=== PATIENT | male | born 1940 | race Caucasian/White ===

== ENCOUNTER 2018-10-04 15:15 | Inpatient (IN) | payer MEDICARE, BC ==
[~2018-10-04] VITALS: Ht 193 cm; Wt 99.8 kg
--- NOTE | 2018-10-04 15:30 | NUR ---
ADMITTED TO INTERMED[facility]ATE [facility] FROM [facility] VIA STRETCHER PER [facility]. DX: CONFUSION AND AGGRESSION. CALM AND COOPERATIVE AT THIS TIME. WILL CPOC.
--- NOTE | 2018-10-04 16:30 | NUR ---
HE HAS BEEN RESTLESS, BUT COOPERATIVE WITH STAFF AND CARE. CODE WORD=FATA HE IS ALSO A DNR. HIS 'S NAME IS ANGELIKA MELO #= [phone]. HE HAS A BRIDGE ON THE BOTTOM. HE DOES WEAR GLASSES.
[2018-10-04] MEDS ORDERED: LIPITOR40 MG PO (16:54)
[2018-10-04] MEDS ORDERED: ATROVENT 0.02%2.5 ML UPD (16:55)
[2018-10-04] MEDS ORDERED: IPRAT-ALBUT 0.5-3 ML UPD (16:58)
[2018-10-04] MEDS ORDERED: NITROQUICK0.4 MG SL (16:58)
[2018-10-04] MEDS ORDERED: LOVENOX40 MG/0.4 SC (16:59)
[2018-10-04] MEDS ORDERED: METOPROLOL TART50 MG PO (17:00)
[2018-10-04] MEDS ORDERED: NYSTATIN1 PWD TOPICAL (17:01)
[2018-10-04] MEDS ORDERED: CIPRODEX OTIC7.5 ML LEFT EAR (17:01)
[2018-10-04] MEDS ORDERED: RISPERDAL1 MG ×2 (17:02)
[2018-10-04] MEDS ORDERED: LANTUS INSULIN10 ML SC (17:03)
[2018-10-04] MEDS ORDERED: HUMALOG 30100 UNITS/ SC (17:03)
[2018-10-04] MEDS ORDERED: ASPIRIN81 MG PO (17:04)
[2018-10-04] MEDS ORDERED: PULMICORT0.5 MG/21 INH (17:04)
[2018-10-04] MEDS ORDERED: NEURONTIN 300300 MG PO (17:05)
[2018-10-04] MEDS ORDERED: DONEPEZIL HCL10 MG PO (17:05)
[2018-10-04] MEDS ORDERED: ACETAMINOPHEN500 M1 PO (17:06)
[2018-10-04] MEDS ORDERED: GLUCOPHAGE1000 MG PO (17:07)
[2018-10-04] MEDS ORDERED: AMOXICILLIN875 MG PO (17:12)
[2018-10-04] MEDS ORDERED: VIBRAMYCIN 100100 MG PO (17:14)
[2018-10-04] MEDS ORDERED: ASPIRIN325 MG PO (17:14)
[2018-10-04] MEDS ORDERED: RISPERDAL0.25 MG PO (17:16)
[2018-10-04 17:37] VITALS: BP 112/70; BMI 26.8
--- NOTE | 2018-10-04 18:00 | NUR ---
PATIENT REFUSED TO EAT SUPPER, BITING, HITTING, PUNCHING AT DOORS, CURSING STAFF AND GRABBING STAFF INAPPROPRIATELY. HALDOL 2 MG IM GIVEN IN RIGHT DELTOID. CONTINUED TO YELL AT STAFF, THREW A GLASS OF WATER, AND TRIED TO THROW URINAL AT STAFF, AND TRIED TO GET UP FROM WHEELCHAIR.
--- NOTE | 2018-10-04 18:41 | NUR ---
DR. FRANCIS HERE. NEW ORDER RECEIVED. GEODON 20 MG IM GIVEN IN RIGHT DELTOID FOR CURSING AND UNCONTROLLED BEHAVIOR, YELLING OUT LOUDLY AND CURSING. HE HAS CALMED ONLY A SLIGHT LITTLE BIT.
--- NOTE | 2018-10-05 04:23 | NUR ---
B) Patient is alert and oriented to self, very agitated at first of shift, combative with staff, restless and verbally abusive, I) Administered scheduled medications as ordered,monitored for safety, redirected as needed, R) Mediation compliant, resting quietly now and sleeping in his bed, P) Continue plan of care.
--- NOTE | 2018-10-05 06:47 | PSY ---
PATIENT NAME:DASHA MELO MEDICAL RECORD: [id number] : 36 LOCATION:[facility] ADMISSION DATE: 10/04/18 ACCOUNT: [id number] PSYCHIATRIC EVALUATION DATE OF EVALUATION: 10/04/18 IDENTIFYING DATA: The patient is 77 years old and he is admitted to the hospital on a voluntary basis. CHIEF COMPLAINT: Aggression. HISTORY OF PRESENT ILLNESS: The patient is referred to us by the [facility]. He is referred because of aggression and confusion. The patient is unable to provide anything in the way of useful history. He says that I am trying to kill him home along with the 2 nurses here even though he then admits he has never seen either one of us before, but when asked how he knows that we are trying to kill him or why he believes we are trying to kill him, he just begin screaming help, help, call the police. Attempts to calm him were not very successful. He is clearly confused and very frightened. There are no records of him having been hospitalized here before and there is no family, although there is a telephone number that is apparently his next of kin, his . PAST MEDICAL HISTORY: Significant for established diagnosis of dementia, although I am not sure when this was diagnosed. He comes to us taking Aricept. The patient also has a history of coronary artery disease and diabetes. PAST PSYCHIATRIC HISTORY: Apparently, the patient has been diagnosed with dementia based on his medication regimen and he is also receiving an antipsychotic medication, which I presume was prescribed at the other hospital because of his agitation. FAMILY HISTORY: Unknown. ALLERGIES: ATIVAN. CURRENT MEDICATIONS: Include amoxicillin, Aricept, aspirin, ciprofloxacin, gabapentin, insulin, metformin, and Risperdal. SOCIAL HISTORY: The patient is . 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 MENTAL STATUS EXAMINATION: The patient is awake, alert and oriented to person only. His mood is angry. His affect is constricted. Thought processes are disorganized. Memory, concentration, and abstraction abilities are at least moderately impaired, but cannot be formally tested because of his agitation. He does deny that he would seek to harm himself or others. He denies overt psychotic symptoms. ASSETS: Supportive family members. LIABILITIES: Limited insight. DIAGNOSTIC IMPRESSION: AXIS I: Senile dementia of the Alzheimer's type with behavioral disturbances. AXIS II: None. AXIS III: Diabetes and coronary artery disease. AXIS IV: Moderate stressors. AXIS V: Global assessment of functioning is 20. PLAN: At this time, the patient is admitted to the hospital secondary to paranoid delusions and aggressive behaviors associated with a dementing illness. He will be treated with both mood stabilizing and memory enhancing medications as deemed appropriate. His long-term prognosis is guarded. TRANSINT:[id number] Voice Confirmation ID: [id number] DOCUMENT ID: [id number] JINNY FRANCIS MD at 0647 CC: [id number] DICTATION DATE: 10/04/181827 LOCAL SALES ASSOCIATE: 10/04/18 1859 ADM IN [place] [id number] [place] [id number]
[2018-10-05 07:30] LABS: BASOPHILS 0.1 % (0-2); EOSINOPHILS 0.7 % (0-7); HEMATOCRIT 31.2 % (42.0-54.0); HEMOGLOBIN 9.7 g/dL (13.5-17.5); IMMATURE GRANULOCYTES 0.7 % (0-5); LYMPHOCYTES 11.5 % (15-50); MCH 27.4 pg (26.0-34.0); MCHC 31.1 g/dL (31.0-37.0); MCV 88.1 fL (80.0-100.0); MEAN PLATELET VOLUME 10.2 fL (7.4-10.4); MONOCYTES 12.1 % (2-11); NEUTROPHILS 74.9 % (40-80); PLATELET COUNT 203 10x3/uL (130-400); RBC 3.54 10x6/uL (4.20-6.10); RDW 16.5 % (11.5-14.5); WBC 10.9 10x3/uL (4.8-10.8)
--- NOTE | 2018-10-05 07:30 | NUR ---
URINE SPECIMEN SENT TO LAB.
[2018-10-05 07:47] VITALS: BP 120/81
[2018-10-05 07:59] LABS: ALBUMIN 2.4 g/dL (3.4-5.0); ALKALINE PHOSPHATASE 45 U/L (46-116); ALT (SGPT) 25 U/L (10-68); BILIRUBIN - TOTAL 0.95 mg/dL (0.2-1.3); CALC OSMOLALITY 276 mosm/kg (275-300); CALCIUM 7.9 mg/dL (8.5-10.1); CARBON DIOXIDE 30.5 mmol/L (21.0-32.0); CHLORIDE - SERUM 100 mmol/L (98-107); CHOL - HDL RATIO 3.5 ratio (2.3-4.9); CHOLESTEROL, TOTAL 74 mg/dL (0-200); CREATININE - SERUM 0.9 mg/dL (0.6-1.3); GLUCOSE 200 mg/dL (74-106); HDL CHOLESTEROL 21 mg/dL (32-96); LDL CHOLESTEROL 36 mg/dL (0-100); LDL-HDL RATIO 1.7 ratio (1.5-3.5); POTASSIUM - SERUM 3.9 mmol/L (3.5-5.1); PROTEIN - SERUM 6.6 g/dL (6.4-8.2); SODIUM 136 mmol/L (136-145); TRIGLYCERIDE 86 mg/dL (30-200); UREA NITROGEN 10 mg/dL (7-18); eGFR NON AFRICAN AMERICAN 86 mL/min (90-120)
[2018-10-05 08:25] LABS: APPEARANCE CLEAR (CLEAR); BILIRUBIN NEGATIVE (NEGATIVE); COLOR YELLOW (YELLOW); GLUCOSE NEGATIVE (NEGATIVE); KETONE NEGATIVE (NEGATIVE); NITRITE NEGATIVE (NEGATIVE); PROTEIN NEGATIVE (NEGATIVE); SPECIFIC GRAVITY 1.005 (1.005-1.020)
--- NOTE | 2018-10-05 10:10 | NUR ---
RECEIVED PATIENT IN DINING ROOM FOR B'FAST, ALERT, CONFUSED, NO AGGRESSION REPORTED. MEDS ADMIN PER ORDERS WITH COMPLETE MED COMPLIANCE NOTED. PATIENT COOPERATIVE WITH STAFF THIS MORNING. REFERRING TO LAST NIGHT'S AGGRESSIVE EPISODE, PATIENT STATED TO MHT, "LAST NIGHT WAS IN THE PAST. LET'S BE FRIENDS." CONT POC INCLUDING MEDS AND GROUP THERAPY DIRECTED.
[2018-10-05 10:25] VITALS: BMI 26.8
[2018-10-05 14:05] VITALS: Ht 193 cm; Wt 99.8 kg
--- NOTE | 2018-10-05 17:41 | NUR ---
DAUGHTER VISITED PATIENT DURING VISITATION TIME.
--- NOTE | 2018-10-05 23:13 | NUR ---
B) PT IS ALERT AND ORIENTED TO SELF. PT CAN BE VERY DEMANDING AND AGGRESSIVE WITH STAFF AT TIMES. I) PRESCRIBED MEDS PROVIDED R) MED COMPLIANT P) WILL CPOC
[2018-10-06 06:14] LABS: VITAMIN D 25 HYDROXY 19.1 ng/mL (30.0-100.0)
[2018-10-06 07:29] LABS: RAPID PLASMA REAGIN Non Reactive (Non Reactive)
[2018-10-06 09:06] VITALS: BP 112/71
--- NOTE | 2018-10-06 10:06 | NUR ---
RECEIVED PATIENT IN DINING ROOM FOR B'FAST. ALERT, CALM, CONFUSED, NO AGGRESSION NOTED. MEDS ADMIN PER ORDERS. TAKES MEDS WHOLE WITH FULL COMPLIANCE. COOPERATIVE WITH GROUP THERAPY AND STAFF REQUESTS. CONT POC INCLUDING MEDS AND GROUP THERAPY DIRECTED.
[2018-10-06 10:15] LABS: FOLATE (FOLIC ACID) - SERUM 9.1 ng/mL (>3.0)
[2018-10-06 12:15] LABS: BASOPHILS 0.1 % (0-2); EOSINOPHILS 0.8 % (0-7); HEMATOCRIT 27.8 % (42.0-54.0); HEMOGLOBIN 8.7 g/dL (13.5-17.5); IMMATURE GRANULOCYTES 0.4 % (0-5); LYMPHOCYTES 11.4 % (15-50); MCH 27.5 pg (26.0-34.0); MCHC 31.3 g/dL (31.0-37.0); MEAN PLATELET VOLUME 9.9 fL (7.4-10.4); MONOCYTES 11.7 % (2-11); NEUTROPHILS 75.6 % (40-80); PLATELET COUNT 179 10x3/uL (130-400); RBC 3.16 10x6/uL (4.20-6.10); RDW 16.1 % (11.5-14.5); WBC 8.4 10x3/uL (4.8-10.8)
[2018-10-06 12:31] LABS: ALBUMIN 2.1 g/dL (3.4-5.0); ANION GAP 10.8 mmol/L (8-16); BILIRUBIN - TOTAL 0.55 mg/dL (0.2-1.3); CALCIUM 7.6 mg/dL (8.5-10.1); CARBON DIOXIDE 30.1 mmol/L (21.0-32.0); CREATININE - SERUM 1.1 mg/dL (0.6-1.3); POTASSIUM - SERUM 3.9 mmol/L (3.5-5.1); PROTEIN - SERUM 5.7 g/dL (6.4-8.2)
--- NOTE | 2018-10-06 13:51 | PN ---
PATIENT:DASHA MELO MEDICAL RECORD: [id number] LOCATION:SIM [facility]112 ADMISSION DATE: 10/04/18 PROGRESS NOTE DATE OF SERVICE: 10/05/2018 SUBJECTIVE: The patient's case was discussed with staff. He has no new complaint. OBJECTIVE: The patient is much better today. He is pleasant and cooperative, but is not giving me really anything in the way of useful information. At this point, he does not look over sedated despite the fact that I started him on Klonopin and Geodon both on a scheduled basis last night. I will watch him for the sedation. He is a high fall risk. I will also gather other collateral sources of information. TRANSINT:[id number] Voice Confirmation ID: [id number] DOCUMENT ID: [id number] JINNY FRANCIS MD at 1351 CC: [id number] DICTATION DATE: 10/05/18729 CARDIOVASCULAR RN: 10/05/18 1113 ADM IN [place] [id number] [place] [address]
--- NOTE | 2018-10-06 18:44 | NUR ---
REQUIRES FREQUENT RE-DIRECTION TO REAMIN IN RECLINER. PATIENT IS ABLE TO STAND ALONE, BUT ONLY WITH VERY UNSTEADY GAIT. FREQUENTLY BECOMES AGITATED WITH RE-DIRECTION.
[2018-10-06 19:53] VITALS: BP 130/70
--- NOTE | 2018-10-06 20:43 | NUR ---
RECEIVED IN HALLWAY OUTSIDE OF NURSES STATION. RESTING IN RECLINER WITH EYES OPEN. CALM AND COOPERATIVE WITH CARE AND ASSESSMENT. NO SIGNS OF AGGRESSION. REDIRECT AND REORIENT NEEDED. RESTING QUIETLY IN RECLINER WITH EYES CLOSED AT THIS TIME. CONTINUE PLAN OF CARE.
[2018-10-07 08:23] VITALS: BP 119/62; BP 137/59
--- NOTE | 2018-10-07 11:30 | NUR ---
THE PATIENT IS MAKING INAPPROPRIATE STATEMENTS. HE TOLD ELIAS DE LA O THAT HE WOULD LIKE TO PUT SOMETHING IN HER MOUTH. SHE TOLD HIM THAT IS INAPPROPRIATE.
--- NOTE | 2018-10-07 15:33 | NUR ---
ORIENTED TO SELF.COMPLIANT WITH MEDS AND STAFF.WILL CONTINUE WITH PLAN OF CARE,MONITOR FOR CHANGES AND SAFETY.UNABLE TO WALK,PT EVALUATED AND TREATED TODAY FOR STRENGTHENING.
[2018-10-07 20:20] VITALS: BP 135/95
--- NOTE | 2018-10-08 04:36 | NUR ---
B) Patient is alert and orientd to person, very confused at times, restless sleep at times, pulling O2 off several times, I) Administered scheduled medications as ordered, monitored for sasafety and for keeping his O2 on, R) Medication compliant, sleeping quietly now P) Continue plan of care.
[2018-10-08 09:26] VITALS: BP 130/61
--- NOTE | 2018-10-08 13:42 | NUR ---
THE PATIENT C/O PAIN IN HIS NECK RATES IT 5/10, HE IS ALSO FIGHTING AND KICKING AT THE STAFF AND HE IS NOT COMPLIANT WITH TOILETING. TYLENOL 650 MG PO AND HALDOL 2 MG IM.
--- NOTE | 2018-10-08 14:13 | PN ---
PATIENT:DASHA MELO MEDICAL RECORD: [id number] LOCATION:[facility] ADMISSION DATE: 10/04/18 PROGRESS NOTE DATE OF SERVICE: 10/06/2018 SUBJECTIVE: The patient's case was discussed with staff. He has no new complaint. OBJECTIVE: The patient denies intent to harm himself or others. He is tolerating his medicines well. He has been a little agitated, but is calmer this afternoon. I can certainly say that the Klonopin and the Geodon at least at this point has not caused excessive sedation. In addition to those scheduled medicines that he has been started on, I am going to give him Aricept to help with his cognitive impairment. He will be monitored for clinical changes associated with it. TRANSINT:[id number] Voice Confirmation ID: [id number] DOCUMENT ID: [id number] JINNY FRANCIS MD at 1413 CC: [id number] DICTATION DATE: 10/06/18 1548 SHIP'S SURVEYOR: 10/06/18 2257 ADM IN [place] [address] [place] [address]
--- NOTE | 2018-10-08 14:13 | PN ---
PATIENT:DASHA MELO MEDICAL RECORD: [id number] LOCATION:[facility] ADMISSION DATE: 10/04/18 PROGRESS NOTE DATE OF SERVICE: 10/07/2018 SUBJECTIVE: The patient's case was discussed with staff. He has no new complaint. OBJECTIVE: The patient is in good behavioral control. He has poor insight about his condition. ASSESSMENT: Senile dementia of the Alzheimer's type with behavioral disturbances. PLAN: The patient will be maintained on current medicines. He has been sexually inappropriate in a verbal manner with one of the nurses. When I asked him about this, he has no recollection of it. TRANSINT:[id number] Voice Confirmation ID: [id number] DOCUMENT ID: [id number] JINNY FRANCIS MD at 1413 CC: [id number] DICTATION DATE: 10/07/18 1504 METAL FURNITURE PANEL COVERER: 10/07/18 1529 ADM IN [facility] [address] [place] [address]
--- NOTE | 2018-10-08 14:30 | NUR ---
THE PATIENT IS AWAKE, HE CONTINUES TO BE INTRUSIVE AND DISRUPTIVE IN THE GROUP, HE HAS NOT COMPLAINED OF HAVING PAIN. HE WILL NOT BE STILL AND HE CONTINUES TO TAKE OFF HIS OXYGEN. HE WILL PUT THE TUBING IN HIS MOUTH. HE DOES NOT REDIRECT, HE DOES NOT LISTEN AND HE TRIES TO STAND UP AND HE IS A FALLS RISK.
--- NOTE | 2018-10-08 16:08 | NUR ---
PATIENT CONTINUES TO BE FUSSY, HE WILL NOT LEAVE HIS OXYGEN ON, THIS NURSE WENT TO ASSIST HIM TO PUT THE OXYGEN BACK ON AND HE IS BREATHING HARDER, LISTENED TO HIS LUNGS AND HE HAS UPPER LOBE EXPIRATORY WHEEZES. WILL CALL DR. CÁRDENAS.
--- NOTE | 2018-10-08 16:10 | NUR ---
DR. CÁRDENAS DID CALL BACK WITH NEW ORDERS. SEE MAR.
--- NOTE | 2018-10-08 16:30 | NUR ---
THE PATIENT BECAME VERY RESTLESS AND HE IS NOT SITTING STILL TRYING TO STAND SAYING HE DOESN'T FEEL WELL. ASKED THE MHT'S TO LAY HIM DOWN IN THE BED AND HE IS LAYING DOWN RESTING EASILY WITH A WARM BLANKET.
--- NOTE | 2018-10-08 17:45 | NUR ---
THE PATIENT HAD A LOOSE BM IN BED, DID CLEAN HE AND THE BED UP. HE GOT SOB AND ANXIOUS, TOOK HIS OXYGEN OFF AGAIN, CHECKED HIS O2 SAT IT IS 88% WITHOUT OXYGEN. PLACED IT BACK ON AND HIS O2 SAT WENT UP TO 96% HE IS HOLLERING OUT "HELP ME" HE KEEPS SAYING "I NEED AIR" "JUST CUT THE Libboo OFF"
--- NOTE | 2018-10-08 18:10 | NUR ---
RECHECKED THE PATIENT'S O2 SAT HE IS LAYING AT 30 DEGREES, SAT HIM UP MORE AND BUMPED HIS O2 TO 2.5 M/L PER N/C HIS SAT JUMPED TO 100%, DID CALL RESPIRATORY TO COME GIVE HIM A BREATHING TREATMENT.
--- NOTE | 2018-10-08 18:16 | NUR ---
PATIENT CONTINUES TO TAKE HIS OXYGEN NASAL CANULA OFF.
--- NOTE | 2018-10-08 18:18 | NUR ---
PATIENT IS NOW YELLING OUT FOR ANGELIKA VELA "GIVE ME THE F---ING DOPE" HE WANTS SOMEONE TO BE RIGHT BY HIS SIDE AND KEEPS SAYING HE CAN'T BREATHE. CHECKED HIS O2 SAT IT IS 97%.
[2018-10-08 19:20] VITALS: BP 120/68
--- NOTE | 2018-10-08 20:13 | NUR ---
Given Geodon 20mg IM for agitation and anxiety. Continually yelling out, confused, unable to redirect.
--- NOTE | 2018-10-09 04:22 | NUR ---
B) Patient has had watery loose stool, like brown-green colored water. Pulling off oxygen and did break tubing, had to get another nasal cannula to place on patient. Oxygen on @2 1/2 L/Min. Calling out for his mom and Felicita. Calling out Help Me. Repeatedly calling these, over and over. Had great difficulty getting to sleep and only sleeps for short naps and is awake again. Disoriented. I) Administer medications as ordered, monitor behavior, maintain unit safety. R) Continually talking to himself. Compliant with medications. Wheezing at times, especially when pulls oxygen off. Confused, anxious, restless. P) Continue to monitor per plan of care.
[2018-10-09 06:39] LABS: BASOPHILS 0.3 % (0-2); EOSINOPHILS 0.2 % (0-7); HEMATOCRIT 32.1 % (42.0-54.0); IMMATURE GRANULOCYTES 0.5 % (0-5); LYMPHOCYTES 10.5 % (15-50); MCH 27.2 pg (26.0-34.0); MCHC 31.2 g/dL (31.0-37.0); MCV 87.5 fL (80.0-100.0); MONOCYTES 7.5 % (2-11); RBC 3.67 10x6/uL (4.20-6.10); RDW 16.1 % (11.5-14.5); WBC 11.8 10x3/uL (4.8-10.8)
[2018-10-09 06:41] LABS: PLATELET COUNT 238 10x3/uL (130-400)
--- NOTE | 2018-10-09 07:48 | NUR ---
THE RESPIRATORY THERAPIST IS HERE GIVING THE PATIENT HIS BREATHING TX, BUT HIS HEART RATE ELEVATED BECAUSE HE KEEPS TAKING OFF HIS OXYGEN, SO SHE STOPPED THE TX WHEN HIS HEART RATE GOT TO 150, DID RECHECK HIM SAT HIM UP AND HAD HIM TO WEAR HIS O2 WHILE HE WAS BEING MONITORED, HIS HEART RATE WENT DOWN TO 109, BUT I WENT OUT OF THE ROOM TO RETURN THE PULSE OX TO THE T AND WENT BACK TO CHECK ON THE PATIENT THAT QUICKLY HE HAD REMOVED HIS OXYGEN AGAIN, HE PUT IT IN HIS MOUTH. ASKED HIM "WHAT ARE YOU SUPPOSED TO BE DOING?" HE SAID "KISS YOU" APPLIED HIS OXYGEN. EXPLAINED TO HIM THAT IT IS IMPORTANT TO LEAVE HIS OXYGEN IN FOR HIS HEALTH. HE HAS POOR INSIGHT INTO HIS SITUATION.
[2018-10-09 10:04] VITALS: BP 140/96
[2018-10-09 10:19] LABS: ALBUMIN 2.3 g/dL (3.4-5.0); ALKALINE PHOSPHATASE 49 U/L (46-116); ALT (SGPT) 23 U/L (10-68); BILIRUBIN - TOTAL 0.82 mg/dL (0.2-1.3); CALC OSMOLALITY 279 mosm/kg (275-300); CALCIUM 7.9 mg/dL (8.5-10.1); CARBON DIOXIDE 33.1 mmol/L (21.0-32.0); CHLORIDE - SERUM 100 mmol/L (98-107); CREATININE - SERUM 0.9 mg/dL (0.6-1.3); GLUCOSE 162 mg/dL (74-106); POTASSIUM - SERUM 3.7 mmol/L (3.5-5.1); PROTEIN - SERUM 6.9 g/dL (6.4-8.2); SODIUM 139 mmol/L (136-145); UREA NITROGEN 8 mg/dL (7-18); eGFR NON AFRICAN AMERICAN 86 mL/min (90-120)
--- NOTE | 2018-10-09 10:37 | NUR ---
DEANNA WRIGHT HERE, SHE IS CHECKING THE PATIENT AND SHE NOTICED HIS GROINAL AREA HAS VESICLES, SHE WOULD LIKE DR. CÁRDENAS TO VISUALIZE WHEN HE COMES TODAY. THE PATIENT CONTINUES TO TAKE OFF HIS OXYGEN, HE IS WET AND DEANNA WRIGHT APN ASSISTED ME TO CHANGE HIS PADS. THE PATIENT'S RESPIRATIONS ARE 22 D/T MOVING HIM, BUT HE SETTLED ONCE HIS O2 WAS PLACED BACK ON AND HE WAS SAT UP, OFFERED HIM SIPS OF JUICE AND HE IS DRINKING FLUIDS WELL, HE DID GO BACK TO SLEEP.
--- NOTE | 2018-10-09 10:40 | NUR ---
THE PATIENT TOOK OFF HIS OXYGEN AND DEANNA WRIGHT APN PUT HIS OXYGEN BACK ON.
--- NOTE | 2018-10-09 10:47 | PN ---
PATIENT:DASHA MELO MEDICAL RECORD: [id number] LOCATION:[facility] ADMISSION DATE: 10/04/18 PROGRESS NOTE DATE OF SERVICE: 10/08/2018 SUBJECTIVE: The patient's case was discussed with staff. He has no new complaint. OBJECTIVE: The patient is in good behavioral control with limited insight about his condition. He is tolerating his medicines well. ASSESSMENT: No change in diagnoses. PLAN: The patient will be treated with a low dose of Neurontin to assist with his neuropathy. He is going to be started at 100 mg twice daily. His long-term prognosis is guarded. TRANSINT:[id number] Voice Confirmation ID: [id number] DOCUMENT ID: [id number] JINNY FRANCIS MD at 1047 CC: [id number] DICTATION DATE: 10/08/18 1609 CAMERA REPAIR TECHNICIAN: 10/08/18 2323 ADM IN [facility] [address] [place] [address]
--- NOTE | 2018-10-09 11:40 | NUR ---
THE PATIENT IS TAKING OFF HIS OXYGEN AND I KEEP ASSISTING HIM TO PUT IT BACK ON.
--- NOTE | 2018-10-09 11:51 | NUR ---
THE PATIENT IS TAKING OFF HIS OXYGEN AND HE THEN BEGINS TO HAVE LABORED BREATHING. HE IS UNCOVERING HIMSELF AND HE IS NAKED.
--- NOTE | 2018-10-09 12:30 | NUR ---
THE PATIENT IS C/O HIS LEFT ARM/HAND HURTING. ASKED HIM IF IT WAS HIS HAND OR HIS SHOULDER OR WHERE IT IS HURTING BECAUSE EVERYTIME HE IS MOVED OR ROLLED IN THE BED HE YELLS. HE SAID HIS SHOULDER.
--- NOTE | 2018-10-09 12:40 | NUR ---
FEEDING THE PATIENT HIS LUNCH, HE ATE A FEW BITES, THEN SAID THAT IS ENOUGH. OFFERED WATER. HE DRANK A FEW SIPS THEN SAID "THAT IS ENOUGH."
--- NOTE | 2018-10-09 12:44 | NUR ---
CALLED DEANNA WRIGHT TO LET HER KNOW THE PATIENT IS C/O PAIN IN HIS LEFT SHOULDER HE HAS TYLENOL, BUT HE STILL C/O PAIN. SHE ORDERED TRAMADOL, SEE MAR.
--- NOTE | 2018-10-09 13:18 | NUR ---
THE PATIENT IS WET, CHANGED HIS PAD. HE CONTINUES TO TAKE OFF HIS OXYGEN.
--- NOTE | 2018-10-09 14:45 | NUR ---
CHECKED ON THE PATIENT TO PROVIDE FLUIDS, DID GIVE HIM SIPS OF WATER, HE IS WET AND DID HAVE TO HAVE ALBERTA ALMEIDA RN ASSIST TO CHANGE THE BED PADS.
--- NOTE | 2018-10-09 15:00 | NUR ---
PROVIDED THE PATIENT A SHAVE, ORAL CARE, WILIAM CARE AND PROVIDED WATER FOR HIM TO DRINK, HE DID DRINK SEVERAL SIPS.
--- NOTE | 2018-10-09 15:33 | NUR ---
PATIENT'S FAMILY HERE VISITING IN HIS ROOM.
--- NOTE | 2018-10-09 15:35 | NUR ---
DID TAKE ANOTHER CHAIR INTO THE FAMILY AND THE SPOUSE SAID "HE CAN TRANSFER BACK TO THE MEDICAL FLOOR IF HE NEEDS TO CAN'T HE?" SAID "YES, MA'AM?"
--- NOTE | 2018-10-09 15:40 | NUR ---
CALLED DEANNA WRIGHT APN EXPLAINED TO HER THAT THE PATIENT IS C/O PAIN IN HIS RIGHT SHOULDER AND ARM. SHE OREDERED AN XRAY OF HIS RIGHT SHOULDER.
--- NOTE | 2018-10-09 15:57 | NUR ---
THE PATIENT'S SPOUSE ASKED FOR A STRAW AND I DID GIVE ONE TO HER. SHE SAID "CAN I HAVE A STRAW?" SAID "YES, MA'AM." SHE ASKED "CAN HE HAVE ICE WATER?" EXPLAINED TO HER THAT "HE IS HAVING SWALLOWING ISSUES AND HE IS NOT SUPPOSED TO HAVE IT." SHE DID ROLL HER EYES AND WALKED AWAY.
--- NOTE | 2018-10-09 16:44 | NUR ---
THE PATIENT'S SPOUSE ASKED "HOW IS HE GETTING HIS ANTIBIOTICS?" I SAID BY MOUTH, SHE SAID "WELL, YOU SAID HE HAS SWALLOWING ISSUES." I SAID "YES, MA'AM, BUT JUST THIN LIQUIDS." SHE "I KNOW THAT, BUT THE ONLY FLUIDS HE HAS HAD IS THE ONES WE HAVE GIVEN HIM WHILE HE IS HERE." DID NOT ARGUE. SHE ASKED ABOUT THE XRAY, EXPLAINED THAT I DID NOT KNOW WHEN IT WOULD BE DONE.
--- NOTE | 2018-10-09 17:10 | NUR ---
THE PATIENT'S SPOUSE SAID SHE WOULD LIKE THE PATIENT TRANSFERRED TO THE MEDICAL FLOOR. I SAID "YES, MA'AM, ALL WE HAVE TO DO IS LET THE DR'S KNOW AND IT WILL GET DONE." DR. CÁRDENAS SPOKE TO THE FAMILY, THE XRAY OF THE SHOULDER SHOWS A DISLOCATION OF THE SHOULDER. THERE WAS NEVER A REPORT OF A FALL TO THIS NURSE.
[2018-10-09] MEDS ORDERED: ZITHROMAX250 MG PO (21:39)
[2018-10-09] MEDS ORDERED: VITAMIN D2000 UNIT PO (21:40)
[2018-10-09] MEDS ORDERED: KLONOPIN1 MG PO (21:40)
[2018-10-09] MEDS ORDERED: CLOTRIMAZOLE-BE30 ML TOPICAL (21:41)
[2018-10-09] MEDS ORDERED: VIBRAMYCIN 100100 MG PO (21:42)
[2018-10-09] MEDS ORDERED: DONEPEZIL HCL5 MG PO (21:42)
[2018-10-09] MEDS ORDERED: LOVENOX40 MG/0.4 SC (21:43)
[2018-10-09] MEDS ORDERED: DIFLUCAN100 MG PO (21:43)
[2018-10-09] MEDS ORDERED: LASIX40 MG PO (21:44)
[2018-10-09] MEDS ORDERED: ANUSOL-HC 2.5%30 GM RC (21:45)
[2018-10-09] MEDS ORDERED: MEGACE40 MG PO (21:46)
[2018-10-09] MEDS ORDERED: METOPROLOL TART50 MG PO (21:47)
[2018-10-09] MEDS ORDERED: CORTISPORIN OTI10 M1 LEFT EAR (21:48)
[2018-10-09] MEDS ORDERED: K-DUR20 MEQ PO (21:49)
[2018-10-09] MEDS ORDERED: NYSTATIN1 PWD TOPICAL (21:49)
[2018-10-09] MEDS ORDERED: ULTRAM50 MG PO (21:50)
[2018-10-09] MEDS ORDERED: VALTREX500 MG PO (21:50)
[2018-10-09] MEDS ORDERED: GEODON20 MG PO (21:51)
--- NOTE | 2018-10-10 09:44 | PN ---
PATIENT:DASHA MELO MEDICAL RECORD: [id number] LOCATION:[facility] ADMISSION DATE: 10/04/18 PROGRESS NOTE DATE OF SERVICE: 10/09/2018 SUBJECTIVE: The patient's case was discussed with staff. He has no new complaint. OBJECTIVE: The patient is clearly medically ill. He is febrile. He has pneumonia. He keeps removing his oxygen and is essentially 1:1 with staff who have to keep replacing the oxygen. He cannot understand the importance. He is confused and his condition is very serious. ASSESSMENT: 1. Senile dementia of the Alzheimer's type with behavioral disturbances. 2. Pneumonia. PLAN: At this point, it is reasonable and appropriate that if family practice wants to move him to the medical floor that is certainly acceptable. I do not think he is a direct risk to any of the other patients or staff given his debilitated condition. Once his medical problems have been addressed whether it is here or upstairs, I will resume trying to address the behavior problems associated with his dementia. TRANSINT:[id number] Voice Confirmation ID: [id number] DOCUMENT ID: [id number] JINNY FRANCIS MD at 0944 CC: [id number] DICTATION DATE: 10/09/18 1101 SUBSTATION DESIGN DRAFTSPERSON: 10/09/18 1130 DIS IN 10/09/18 [facility] [address] [place] [address]
== END 2018-10-09 20:00 | disposition short-term general hospital (02) | DRG 56 ==
LOC: D.PSYCH 15:15 → D.SDCHOLD 10-07 16:31 → D.PSYCH 10-07 16:32 → EDBD 10-09 20:00
PROVIDERS: Family Medicine; ADMIT Psychiatry & Neurology Psychiatry; ATTEND Psychiatry & Neurology Psychiatry
DX: G30.1 Alzheimer's disease with late onset (principal); J18.9 Pneumonia, unspecified organism; F02.81 Dementia in other diseases classified elsewhere, unspecified severity, with behavioral disturbance; J44.0 Chronic obstructive pulmonary disease with (acute) lower respiratory infection; I25.10 Atherosclerotic heart disease of native coronary artery without angina pectoris; F41.9 Anxiety disorder, unspecified; E11.40 Type 2 diabetes mellitus with diabetic neuropathy, unspecified; M25.512 Pain in left shoulder; I10 Essential (primary) hypertension; M54.5 Low back pain; G89.29 Other chronic pain; B00.9 Herpesviral infection, unspecified; D64.9 Anemia, unspecified; E55.9 Vitamin D deficiency, unspecified; K59.00 Constipation, unspecified; H60.92 Unspecified otitis externa, left ear; K64.9 Unspecified hemorrhoids; R21 Rash and other nonspecific skin eruption

== ENCOUNTER 2018-10-09 19:29 | Inpatient (IN) | payer MEDICARE, BC ==
[~2018-10-09] VITALS: Ht 193 cm; Wt 99.3 kg
[~2018-10-09 19:29] MED LIST: ACETAMINOPHEN500 M1 PO; AMOXICILLIN875 MG PO; ASPIRIN325 MG PO; ASPIRIN81 MG PO; ATROVENT 0.02%2.5 ML UPD; CIPRODEX OTIC7.5 ML LEFT EAR; DONEPEZIL HCL10 MG PO; GLUCOPHAGE1000 MG PO; HUMALOG 30100 UNITS/ SC; IPRAT-ALBUT 0.5-3 ML UPD; LANTUS INSULIN10 ML SC; LIPITOR40 MG PO; LOVENOX40 MG/0.4 SC; METOPROLOL TART50 MG PO; NEURONTIN 300300 MG PO; NITROQUICK0.4 MG SL; NYSTATIN1 PWD TOPICAL; PULMICORT0.5 MG/21 INH; RISPERDAL0.25 MG PO; RISPERDAL1 MG; VIBRAMYCIN 100100 MG PO
[2018-10-09] MEDS ORDERED: ZITHROMAX250 MG PO (21:39)
[2018-10-09] MEDS ORDERED: VITAMIN D2000 UNIT PO (21:40)
[2018-10-09] MEDS ORDERED: KLONOPIN1 MG PO (21:40)
[2018-10-09] MEDS ORDERED: CLOTRIMAZOLE-BE30 ML TOPICAL (21:41)
[2018-10-09] MEDS ORDERED: VIBRAMYCIN 100100 MG PO (21:42)
[2018-10-09] MEDS ORDERED: DONEPEZIL HCL5 MG PO (21:42)
[2018-10-09] MEDS ORDERED: LOVENOX40 MG/0.4 SC (21:43)
[2018-10-09] MEDS ORDERED: DIFLUCAN100 MG PO (21:43)
[2018-10-09] MEDS ORDERED: LASIX40 MG PO (21:44)
[2018-10-09] MEDS ORDERED: ANUSOL-HC 2.5%30 GM RC (21:45)
[2018-10-09] MEDS ORDERED: MEGACE40 MG PO (21:46)
[2018-10-09] MEDS ORDERED: METOPROLOL TART50 MG PO (21:47)
[2018-10-09] MEDS ORDERED: CORTISPORIN OTI10 M1 LEFT EAR (21:48)
[2018-10-09] MEDS ORDERED: NYSTATIN1 PWD TOPICAL (21:49)
[2018-10-09] MEDS ORDERED: K-DUR20 MEQ PO (21:49)
[2018-10-09] MEDS ORDERED: VALTREX500 MG PO (21:50)
[2018-10-09] MEDS ORDERED: ULTRAM50 MG PO (21:50)
[2018-10-09] MEDS ORDERED: GEODON20 MG PO (21:51)
[2018-10-09 23:45] VITALS: BP 112/67; BMI 26.7
[2018-10-10 00:49] VITALS: BP 124/76
[2018-10-10 05:07] VITALS: BP 112/77
[2018-10-10 08:38] VITALS: BP 154/95
[2018-10-10 13:11] VITALS: BP 103/58
[2018-10-10 17:10] VITALS: BP 102/73
[2018-10-10 20:00] VITALS: BP 111/71
[2018-10-11] VITALS: BP 94/61
[2018-10-11 04:00] VITALS: BP 103/61
[2018-10-11 06:51] LABS: ANION GAP 12.2 mmol/L (8-16); BILIRUBIN - TOTAL 0.52 mg/dL (0.2-1.3); CALCIUM 7.9 mg/dL (8.5-10.1); PROTEIN - SERUM 6.9 g/dL (6.4-8.2)
[2018-10-11 06:58] LABS: HEMATOCRIT 28.4 % (42.0-54.0); HEMOGLOBIN 8.4 g/dL (13.5-17.5); MCH 26.5 pg (26.0-34.0); MCHC 29.6 g/dL (31.0-37.0); MCV 89.6 fL (80.0-100.0); PLATELET COUNT 227 10x3/uL (130-400); RBC 3.17 10x6/uL (4.20-6.10); RDW 16.5 % (11.5-14.5)
[2018-10-11 07:00] LABS: CREATININE - SERUM 2.3 mg/dL (0.6-1.3); POTASSIUM - SERUM 5.2 mmol/L (3.5-5.1)
[2018-10-11 09:04] LABS: ANISOCYTOSIS OCC; EOSINOPHILS 1 % (0-7); HYPOCHROMASIA OCC; LYMPHOCYTES 3 % (15-50); MONOCYTES 9 % (2-11); NEUTROPHILS 65 % (40-80); PLATELET ESTIMATE NORMAL
[2018-10-11 09:20] VITALS: BP 125/62
[2018-10-11 13:14] VITALS: BP 120/70
[2018-10-11 15:02] VITALS: BMI 26.6
--- NOTE | 2018-10-11 16:20 | MORECARE ---
CASE MANAGEMENT DISCHARGE SUMMARY PATIENT: DASHA MELO UNIT: [id number] ADM DATE: 10/09/18 AGE: 77 : 38 SEX: M ROOM/BED: D.2225 AUTHOR: FLORENCIA,DOC PHYSICIAN: REFERRING PHYSICIAN: KYLER CÁRDENAS MD DATE OF SERVICE: 10/11/18 Discharge Plan Patient Name: DASHA MELO Facility: [facility]:[place] : 1940 Planned Disposition: Long-Term Facility Anticipated Discharge Date: Discharge Date: Expected LOS: Initial Reviewer: [email or web address] Initial Review Date: 10/09/2018 Generated: 10/11/18 5:20 pm Comments DCP- Discharge Planning Updated by [email or web address]: Katy Elaine on 10/11/18 3:[address] Patient Name: DASHA MELO Admission Status: Elective Accout number: [id number] Admission Date: 10-09-2018 : 1940 Admission Diagnosis:SHORTNESS OF BREATH Attending: KYLER CÁRDENAS Current LOS: 2 Anticipated DC Date: Planned Disposition: Long-Term Facility Primary Insurance: MEDICARE A & B Discharge Planning Comments: CM met with patient's daughter per her request. Patient is not alert at this time, so all conversation is with daughter. She states her father has been in [facility] for his dementia. States they were working on trying to get him placed in a SNF to transition to LTC. States he has been living with his in [place]. States he has been recently diagnosed with moderate to severe dementia. She has several NH names that she has received from Isaiah in [facility] and her own contacts. FAUSTINO signed. She would like me to have him go to [facility] first since it is in [place] and near his home. I will send out the referral in am. CM will continue to follow and assist with discharge planning/needs. Assembler Convertible Top: Katy Elaine DCPIA - Discharge Planning Initial Assessment Updated by [email or web address]: Katy Elaine on 10/11/18 4:14 pm * Is the patient Alert and Oriented? No * PCP Katerin Dominique in [place] * Pharmacy Unsure of pharmacy * Preadmission Environment Other * Other Environment [facility] * Facility Name [facility] * ADLs Total Dependent * Equipment Cane Oxygen Rolling Walker * List name and contact numbers for known caregivers / representatives who currently or will assist patient after discharge: Erika Urbano - [facility] - [phone] * Verbal permission to speak to the caregivers and representatives has been obtained from the patient. N/A * Community resources currently utilized None * Additional services required to return to the preadmission environment? Yes * Can the patient safely return to the preadmission environment? No * Has this patient been hospitalized within the prior 30 days at any hospital? Yes Patient Name: DASHA MELO Page [id number] at 1620 All edits/amendments must be made on the electronic document DICTATION DATE: 10/11/181619 CHAPERON: INGA 10/11/181619 RPT#: [id number] DC DATE: STATUS: ADM IN [facility] [address] [place] [address] END OF REPORT
[2018-10-11 17:10] VITALS: BP 126/57
[2018-10-11 20:00] VITALS: BP 109/78
[2018-10-12 01:14] VITALS: BP 118/64
[2018-10-12 04:47] VITALS: BP 124/53
[2018-10-12 07:09] LABS: BASOPHILS 0.1 % (0-2); EOSINOPHILS 0 % (0-7); HEMATOCRIT 26.8 % (42.0-54.0); IMMATURE GRANULOCYTES 0.6 % (0-5); LYMPHOCYTES 3.2 % (15-50); MCH 26.5 pg (26.0-34.0); MCHC 29.9 g/dL (31.0-37.0); MCV 88.7 fL (80.0-100.0); MEAN PLATELET VOLUME 10.7 fL (7.4-10.4); NEUTROPHILS 94.1 % (40-80); PLATELET COUNT 182 10x3/uL (130-400); RBC 3.02 10x6/uL (4.20-6.10); RDW 16.1 % (11.5-14.5)
[2018-10-12 07:15] LABS: WBC 14.9 10x3/uL (4.8-10.8)
[2018-10-12 07:31] LABS: ALBUMIN 1.8 g/dL (3.4-5.0); BILIRUBIN - TOTAL 0.61 mg/dL (0.2-1.3); CALCIUM 8.4 mg/dL (8.5-10.1); POTASSIUM - SERUM 5.3 mmol/L (3.5-5.1); PROTEIN - SERUM 7.2 g/dL (6.4-8.2)
[2018-10-12 07:43] LABS: ANION GAP 23.5 mmol/L (8-16); CARBON DIOXIDE 20.8 mmol/L (21.0-32.0); CREATININE - SERUM 4.2 mg/dL (0.6-1.3)
[2018-10-12 09:12] VITALS: BP 105/85
[2018-10-12 18:36] VITALS: BP 100/75
[2018-10-12 21:21] VITALS: BP 113/82
[2018-10-13 04:39] VITALS: BP 130/77
[2018-10-13 07:38] LABS: BASOPHILS 0.1 % (0-2); EOSINOPHILS 0 % (0-7); HEMATOCRIT 26.3 % (42.0-54.0); HEMOGLOBIN 8.3 g/dL (13.5-17.5); IMMATURE GRANULOCYTES 0.5 % (0-5); LYMPHOCYTES 4.4 % (15-50); MCH 26.8 pg (26.0-34.0); MCHC 31.6 g/dL (31.0-37.0); MEAN PLATELET VOLUME 10.3 fL (7.4-10.4); MONOCYTES 3.8 % (2-11); NEUTROPHILS 91.2 % (40-80); PLATELET COUNT 211 10x3/uL (130-400); RDW 15.7 % (11.5-14.5); WBC 12.9 10x3/uL (4.8-10.8)
[2018-10-13 07:45] LABS: CALCIUM 8.3 mg/dL (8.5-10.1); CARBON DIOXIDE 24.2 mmol/L (21.0-32.0); CREATININE - SERUM 4.2 mg/dL (0.6-1.3); POTASSIUM - SERUM 5.2 mmol/L (3.5-5.1); VANCOMYCIN - RANDOM 16.3 ug/mL (10.0-20.0)
[2018-10-13 08:12] LABS: MCV 84.8 fL (80.0-100.0)
[2018-10-13 09:35] VITALS: BP 146/96
[2018-10-13 10:58] VITALS: Ht 193 cm; Wt 99.3 kg
--- NOTE | 2018-10-13 11:56 | MORECARE ---
CASE MANAGEMENT DISCHARGE SUMMARY PATIENT: DASHA MELO UNIT: [id number] ADM DATE: 10/09/18 AGE: 77 : 38 SEX: M ROOM/BED: D.2225 AUTHOR: FLORENCIA,DOC PHYSICIAN: REFERRING PHYSICIAN: KYLER CÁRDENAS MD DATE OF SERVICE: 10/13/18 Discharge Plan Patient Name: DASHA MELO Facility: [facility]:[place] : 1940 Planned Disposition: Care Home Facility Anticipated Discharge Date: Discharge Date: Expected LOS: Initial Reviewer: [id number] Initial Review Date: 10/09/2018 Generated: 10/13/18 12:55 pm Comments DCP- Discharge Planning Updated by [email or web address]: Katy Elaine on 10/13/18 10:[address] was here yesterday and spoke with lindy Vela for [facility] in [place]. states she would like her to go to [facility] for SNF when he was discharged from acute care. Will wait on sending referral per Gloria's recommendation until closer to discharge. CM will continue to follow and assist with discharge planning/needs. DCP- Discharge Planning Updated by [id number]: Katy Elaine on 10/11/18 3:[address] Patient Name: DASHA MELO Admission Status: Elective Accout number: [id number] Admission Date: 10-09-2018 : 1940 Admission Diagnosis:SHORTNESS OF BREATH Attending: KYLER CÁRDENAS Current LOS: 2 Anticipated DC Date: Planned Disposition: Care Home Facility Primary Insurance: MEDICARE A & B Discharge Planning Comments: CM met with patient's daughter per her request. Patient is not alert at this time, so all conversation is with daughter. She states her father has been in snf for his dementia. States they were working on trying to get him placed in a SNF to transition to LTC. States he has been living with his in [place]. States he has been recently diagnosed with moderate to severe dementia. She has several NH names that she has received from [facility] in snf and her own contacts. FAUSTINO signed. She would like me to have him go to [facility] since it is in [place] and near his home. I will send out the referral in am. CM will continue to follow and assist with discharge planning/needs. Academic Services Coordinator: Katy Chele DCPIA - Discharge Planning Initial Assessment Updated by [id number]: Katy Elaine on 10/11/18 4:14 pm * Is the patient Alert and Oriented? No * PCP K[facility]in Dominique in [place] * Pharmacy Unsure of pharmacy * Preadmission Environment Other * Other Environment [facility]dc * Facility Name [facility] at [facility] * ADLs Total Dependent * Equipment Cane Oxygen Rolling Walker * List name and contact numbers for known caregivers / representatives who currently or will assist patient after discharge: Erika Urbano DTR - [phone] * Verbal permission to speak to the caregivers and representatives has been obtained from the patient. N/A * Community resources currently utilized None * Additional services required to return to the preadmission environment? Yes * Can the patient safely return to the preadmission environment? No * Has this patient been hospitalized within the prior 30 days at any hospital? Yes Coverage Notice Reviewer: [id number] - Katy Elaine Notice Issued Date-Time: 10/11/2018 16:19 Notice Type: Patient Choice Letter Notice Delivered To: Family Member Relationship to Patient: Daughter Medical Device Sales Consultant Name: Erika Magana Delivery Method: HAND - Hand Delivered Carmen Days: Prior Verbal Notification: Recipient Understood Notice: Yes Recipient Signature: Yes Med Rec Note Co-signed by Attending: Coverage Notice Comment: 1. [facility] in [place] 2. [facility] [place] in [place] 3. [facility] in [place] 4. [facility] DP export: 10/11/18 3:20 pm Patient Name: DASHA MELO Page [id number] at 1156 All edits/amendments must be made on the electronic document DICTATION DATE: 10/13/18 1155 TURBINE ATTENDANT: INGA 10/13/18 1155 RPT#: [id number] DC DATE: STATUS: ADM IN [facility] [address] [place] [address] END OF REPORT
[2018-10-13 15:36] LABS: APPEARANCE SL CLDY (CLEAR); BILIRUBIN NEGATIVE (NEGATIVE); COLOR YELLOW (YELLOW); GLUCOSE NEGATIVE (NEGATIVE); KETONE NEGATIVE (NEGATIVE); NITRITE NEGATIVE (NEGATIVE); PROTEIN TRACE mg/dL (NEGATIVE); SPECIFIC GRAVITY 1.015 (1.005-1.020); UROBILINOGEN NORMAL (NORMAL)
[2018-10-13 15:37] LABS: BACTERIA MODERATE /hpf (NONE SEEN); RED CELLS - URINE OCC /hpf (0-5); WHITE CELLS - URINE 0-5 /hpf (0-5)
[2018-10-13 20:00] VITALS: BP 136/91
[2018-10-14] VITALS: BP 149/81
[2018-10-14 04:00] VITALS: BP 143/103
[2018-10-14 05:56] LABS: BASOPHILS 0.1 % (0-2); EOSINOPHILS 0 % (0-7); HEMATOCRIT 27.3 % (42.0-54.0); HEMOGLOBIN 8.6 g/dL (13.5-17.5); IMMATURE GRANULOCYTES 0.6 % (0-5); LYMPHOCYTES 5.5 % (15-50); MCHC 31.5 g/dL (31.0-37.0); MCV 85.6 fL (80.0-100.0); MEAN PLATELET VOLUME 9.7 fL (7.4-10.4); NEUTROPHILS 88.8 % (40-80); PLATELET COUNT 189 10x3/uL (130-400); RBC 3.19 10x6/uL (4.20-6.10)
[2018-10-14 06:13] LABS: ANION GAP 20.7 mmol/L (8-16); BILIRUBIN - TOTAL 0.82 mg/dL (0.2-1.3); CALCIUM 8.3 mg/dL (8.5-10.1); CARBON DIOXIDE 21.4 mmol/L (21.0-32.0); CREATININE - SERUM 3.3 mg/dL (0.6-1.3); POTASSIUM - SERUM 5.1 mmol/L (3.5-5.1); PROTEIN - SERUM 6.9 g/dL (6.4-8.2); VANCOMYCIN - RANDOM 10.6 ug/mL (10.0-20.0)
[2018-10-14 06:18] LABS: WBC 8.7 10x3/uL (4.8-10.8)
[2018-10-14 09:37] VITALS: BP 164/71
[2018-10-14 12:27] VITALS: BP 145/75
[2018-10-14 18:34] VITALS: BP 143/70
[2018-10-14 20:00] VITALS: BP 131/73
[2018-10-15] VITALS: BP 131/83
[2018-10-15 04:00] VITALS: BP 136/75
[2018-10-15 05:19] LABS: BASOPHILS 0.3 % (0-2); EOSINOPHILS 0 % (0-7); HEMATOCRIT 27.9 % (42.0-54.0); HEMOGLOBIN 8.3 g/dL (13.5-17.5); IMMATURE GRANULOCYTES 1.8 % (0-5); LYMPHOCYTES 13.4 % (15-50); MCH 26.5 pg (26.0-34.0); MCHC 29.7 g/dL (31.0-37.0); MEAN PLATELET VOLUME 10.4 fL (7.4-10.4); MONOCYTES 7.8 % (2-11); NEUTROPHILS 76.7 % (40-80); RBC 3.13 10x6/uL (4.20-6.10); RDW 16.1 % (11.5-14.5)
[2018-10-15 05:22] LABS: MCV 89.1 fL (80.0-100.0); PLATELET COUNT 136 10x3/uL (130-400); WBC 3.9 10x3/uL (4.8-10.8)
[2018-10-15 08:12] VITALS: BP 137/74
--- NOTE | 2018-10-15 11:11 | MORECARE ---
CASE MANAGEMENT DISCHARGE SUMMARY PATIENT: DASHA MELO UNIT: [id number] ADM DATE: 10/09/18 AGE: 77 : 38 SEX: M ROOM/BED: D.2117 AUTHOR: FLORENCIA,DOC PHYSICIAN: REFERRING PHYSICIAN: KYLER CÁRDENAS MD DATE OF SERVICE: 10/15/18 Discharge Plan Patient Name: DASHA MELO Facility: [facility]:[place] : 1940 Planned Disposition: Senior Care Facility Anticipated Discharge Date: Discharge Date: Expected LOS: Initial Reviewer: [id number] Initial Review Date: 10/09/2018 Generated: 10/15/18 12:11 pm Comments DCP- Discharge Planning Updated by [id number]: Katy Elaine on 10/13/18 10:[address] was here yesterday and spoke with lindy Vela for [facility] in [place]. states she would like her to go to [facility] for SNF when he was discharged from acute care. Will wait on sending referral per Gloria's recommendation until closer to discharge. CM will continue to follow and assist with discharge planning/needs. DCP- Discharge Planning Updated by [id number]: Katy Elaine on 10/11/18 3:[address] Patient Name: DASHA MELO Admission Status: Elective Accout number: [id number] Admission Date: 10-09-2018 : 1940 Admission Diagnosis:SHORTNESS OF BREATH Attending: KYLER CÁRDENAS Current LOS: 2 Anticipated DC Date: Planned Disposition: Senior Care Facility Primary Insurance: MEDICARE A & B Discharge Planning Comments: CM met with patient's daughter per her request. Patient is not alert at this time, so all conversation is with daughter. She states her father has been in halfway for his dementia. States they were working on trying to get him placed in a SNF to transition to LTC. States he has been living with his in [place]. States he has been recently diagnosed with moderate to severe dementia. She has several NH names that she has received from [facility] in halfway and her own contacts. FAUSTINO signed. She would like me to have him go to [facility] since it is in [place] and near his home. I will send out the referral in am. CM will continue to follow and assist with discharge planning/needs. Cut Off Saw Operator: Katy Chele DCPIA - Discharge Planning Initial Assessment Updated by [id number]: Katy Elaine on 10/11/18 4:14 pm * Is the patient Alert and Oriented? No * PCP [facility] Domin[facility] in [place] * Pharmacy Unsure of pharmacy * Preadmission Environment Other * Other Environment Nursing Home * Facility Name Nursing Home at [facility] * ADLs Total Dependent * Equipment Cane Oxygen Rolling Walker * List name and contact numbers for known caregivers / representatives who currently or will assist patient after discharge: Erika Urbano - DTR - [phone] * Verbal permission to speak to the caregivers and representatives has been obtained from the patient. N/A * Community resources currently utilized None * Additional services required to return to the preadmission environment? Yes * Can the patient safely return to the preadmission environment? No * Has this patient been hospitalized within the prior 30 days at any hospital? Yes External Providers External Provider: [facility] Next Contact Date: Service Request Date: Service Type: Resolution: Reviewer: Comments: Coverage Notice Reviewer: [id number] - Katy Chele Notice Issued Date-Time: 10/11/2018 16:19 Notice Type: Patient Choice Letter Notice Delivered To: Family Member Relationship to Patient: Daughter Senior Technical Editor Name: Erika Magana Delivery Method: HAND - Hand Delivered Carmen Days: Prior Verbal Notification: Recipient Understood Notice: Yes Recipient Signature: Yes Med Rec Note Co-signed by Attending: Coverage Notice Comment: 1. [facility] in [place] 2. [facility] in [place] 3. [facility] in [place] 4. [facility] in [place] Reviewer: [id number] Ade Pelaez Notice Issued Date-Time: 10/15/2018 11:11 Notice Type: Patient Choice Letter Notice Delivered To: Family Member Relationship to Patient: Daughter Senior Technical Editor Name: Delivery Method: - Carmen Days: Prior Verbal Notification: Recipient Understood Notice: Recipient Signature: Med Rec Note Co-signed by Attending: Coverage Notice Comment: Last DP export: 10/13/18 10:55 am Patient Name: DASHA MELO Page 43481 at 1111 All edits/amendments must be made on the electronic document DICTATION DATE: 10/15/18 1111 CERTIFIED SURGICAL TECH/FIRST ASSISTANT: INGA 10/15/18 1111 RPT#: [id number] DC DATE: STATUS: ADM IN [facility] [address] [place] [address] END OF REPORT
--- NOTE | 2018-10-15 12:53 | MORECARE ---
CASE MANAGEMENT DISCHARGE SUMMARY PATIENT: DASHA MELO UNIT: [id number] ADM DATE: 10/09/18 AGE: 77 : 38 SEX: M ROOM/BED: D.2117 AUTHOR: FLORENCIA,DOC PHYSICIAN: REFERRING PHYSICIAN: KYLER CÁRDENAS MD DATE OF SERVICE: 10/15/18 Discharge Plan Patient Name: DSAHA MELO Facility: [facility]:[place] : 1940 Planned Disposition: Shelter Facility Anticipated Discharge Date: Discharge Date: Expected LOS: Initial Reviewer: [id number] Initial Review Date: 10/09/2018 Generated: 10/15/18 1:52 pm Comments DCP- Discharge Planning Updated by [id number]: Malou Pelaez on 10/15/18 11:[address] Patient Name: DASHA MELO Admission Status: Elective Accout number: [id number] Admission Date: 10-09-2018 : 1940 Admission Diagnosis:SHORTNESS OF BREATH Attending: KYLER CÁRDENAS Current LOS: 6 Anticipated DC Date: Planned Disposition: Shelter Facility Primary Insurance: MEDICARE A & B Discharge Planning Comments: CM MET WITH PATIENT'S DAUGHTER ERIKA AND SHE STATES THEY WANT [facility] IN [facility]. FAUSTINO SIGNED AND DOCUMENTS FAXED TO [facility] AT [phone]. PHONE NUMBER [phone], SPOKE WITH THEM AND WAITING RADIOLOGIC TECHNOLOGY PROGRAM DIRECTOR BACK. CM TO FOLLOW AND ASSISST NEEDED WITH DC PLANNING/NEEDS. Assistant Executive Housekeeper: Malou Pelaez DCP- Discharge Planning Updated by [id number]: Katy Elaine on 10/13/18 10:[address] was here yesterday and spoke with lindy Vela for [facility] in [place]. states she would like her to go to [facility] for SNF when he was discharged from acute care. Will wait on sending referral per Gloria's recommendation until closer to discharge. CM will continue to follow and assist with discharge planning/needs. DCP- Discharge Planning Updated by [id number]: Katy Elaine on 10/11/18 3:[address] Patient Name: DASHA MELO Admission Status: Elective Accout number: [id number] Admission Date: 10-09-2018 : 1940 Admission Diagnosis:SHORTNESS OF BREATH Attending: KYLER CÁRDENAS Current LOS: 2 Anticipated DC Date: Planned Disposition: Shelter Facility Primary Insurance: MEDICARE A & B Discharge Planning Comments: CM met with patient's daughter per her request. Patient is not alert at this time, so all conversation is with daughter. She states her father has been in [facility] for his dementia. States they were working on trying to get him placed in a SNF to transition to LTC. States he has been living with his in [place]. States he has been recently diagnosed with moderate to severe dementia. She has several NH names that she has received from [facility] in [facility] and her own contacts. FAUSTINO signed. She would like me to have him go to [facility] since it is in [place] and near his home. I will send out the referral in am. CM will continue to follow and assist with discharge planning/needs. Assistant Executive Housekeeper: Katy Elaine DCPIA - Discharge Planning Initial Assessment Updated by [id number]: Katy Elaine on 10/11/18 4:14 pm * Is the patient Alert and Oriented? No * PCP [facility] Dominique in [place] * Pharmacy Unsure of pharmacy * Preadmission Environment Other * Other Environment Detention * Facility Name Detention at [facility] * ADLs Total Dependent * Equipment Cane Oxygen Rolling Walker * List name and contact numbers for known caregivers / representatives who currently or will assist patient after discharge: Erika Urbano - DTR - [phone] * Verbal permission to speak to the caregivers and representatives has been obtained from the patient. N/A * Community resources currently utilized None * Additional services required to return to the preadmission environment? Yes * Can the patient safely return to the preadmission environment? No * Has this patient been hospitalized within the prior 30 days at any hospital? Yes Coverage Notice Reviewer: [id number] - Katy Elaine Notice Issued Date-Time: 10/11/2018 16:19 Notice Type: Patient Choice Letter Notice Delivered To: Family Member Relationship to Patient: Daughter Book Binder Name: Erika Magana Delivery Method: HAND - Hand Delivered Carmen Days: Prior Verbal Notification: Recipient Understood Notice: Yes Recipient Signature: Yes Med Rec Note Co-signed by Attending: Coverage Notice Comment: 1. [facility] [place] in [place] 2. [facility] [place] in [place] 3. [facility] in [place] 4. [facility] in [place] Reviewer: [id number] - Malou Pelaez Notice Issued Date-Time: 10/15/2018 11:11 Notice Type: Patient Choice Letter Notice Delivered To: Family Member Relationship to Patient: Daughter Book Binder Name: Delivery Method: HAND - Hand Delivered Carmen Days: Prior Verbal Notification: Recipient Understood Notice: Yes Recipient Signature: Yes Med Rec Note Co-signed by Attending: Coverage Notice Comment: [facility] FOR [facility] IN [place]. Last DP export: 10/15/18 10:11 am Patient Name: DASHA MELO Page [id number] at 1253 All edits/amendments must be made on the electronic document DICTATION DATE: 10/15/18 1252 INFORMATION SYSTEMS COORDINATOR: INGA 10/15/18 1252 RPT#: [id number] DC DATE: STATUS: ADM IN [facility] [address] [place] [address] END OF REPORT
[2018-10-15 13:42] LABS: ALBUMIN 1.9 g/dL (3.4-5.0); BILIRUBIN - TOTAL 0.55 mg/dL (0.2-1.3); CALCIUM 7.9 mg/dL (8.5-10.1); MAGNESIUM - SERUM 2.2 mg/dL (1.8-2.4); PHOSPHOROUS 3.2 mg/dL (2.5-4.9); PROTEIN - SERUM 6.1 g/dL (6.4-8.2)
[2018-10-15 13:51] LABS: ANION GAP 10.8 mmol/L (8-16); CARBON DIOXIDE 29.4 mmol/L (21.0-32.0); POTASSIUM - SERUM 4.2 mmol/L (3.5-5.1)
[2018-10-15 13:58] VITALS: BP 120/08
[2018-10-15 16:39] VITALS: BP 126/65
--- NOTE | 2018-10-15 16:43 | MORECARE ---
CASE MANAGEMENT DISCHARGE SUMMARY PATIENT: DASHA MELO UNIT: [id number] ADM DATE: 10/09/18 AGE: 77 : 38 SEX: M ROOM/BED: D.2117 AUTHOR: FLORENCIA,DOC PHYSICIAN: REFERRING PHYSICIAN: KYLER CÁRDENAS MD DATE OF SERVICE: 10/15/18 Discharge Plan Patient Name: DASHA MELO Facility: [facility]:[place] : 1940 Planned Disposition: [facility]ci Facility Anticipated Discharge Date: Discharge Date: Expected LOS: Initial Reviewer: [id number] Initial Review Date: 10/09/2018 Generated: 10/15/18 5:42 pm Comments DCP- Discharge Planning Updated by [id number]: Malou Pelaez on 10/15/18 3:[address] Patient Name: DASHA MELO Admission Status: Elective Accout number: [id number] Admission Date: 10-09-2018 : 1940 Admission Diagnosis:SHORTNESS OF BREATH Attending: KYLER CÁRDENAS Current LOS: 6 Anticipated DC Date: Planned Disposition: [facility]ci Facility Primary Insurance: MEDICARE A & B Discharge Planning Comments: FAMILY IS INTERESTED IN HOSPICE CARE. Instrument Engineer: Malou Pelaez DCP- Discharge Planning Updated by [id number]: Malou Pelaez on 10/15/18 11:[address] Patient Name: DASHA MELO Admission Status: Elective Accout number: [id number] Admission Date: 10-09-2018 : 1940 Admission Diagnosis:SHORTNESS OF BREATH Attending: KYLER CÁRDENAS Current LOS: 6 Anticipated DC Date: Planned Disposition: Fci Facility Primary Insurance: MEDICARE A & B Discharge Planning Comments: CM MET WITH PATIENT'S DAUGHTER ERIKA AND SHE STATES THEY WANT [facility]. FAUSTINO SIGNED AND DOCUMENTS FAXED TO [facility] AT [phone]. PHONE NUMBER [phone], SPOKE WITH THEM AND WAITING PASSENGER COACH DRIVER BACK. CM TO FOLLOW AND ASSISST NEEDED WITH DC PLANNING/NEEDS. Instrument Engineer: Malou Pelaez DCP- Discharge Planning Updated by [email or web address]: Katy Sepulvedacamilo on 10/13/18 10:[address] was here yesterday and spoke with lindy Vela for [facility] in [place]. states she would like her to go to [facility] for SNF when he was discharged from acute care. Will wait on sending referral per Gloria's recommendation until closer to discharge. CM will continue to follow and assist with discharge planning/needs. DCP- Discharge Planning Updated by [id number]: Katy Elaine on 10/11/18 3:[address] Patient Name: DASHA MELO Admission Status: Elective Accout number: [id number] Admission Date: 10-09-2018 : 1940 Admission Diagnosis:SHORTNESS OF BREATH Attending: KYLER CÁRDENAS Current LOS: 2 Anticipated DC Date: Planned Disposition: [facility]ci Facility Primary Insurance: MEDICARE A & B Discharge Planning Comments: CM met with patient's daughter per her request. Patient is not alert at this time, so all conversation is with daughter. She states her father has been in [facility] for his dementia. States they were working on trying to get him placed in a SNF to transition to LTC. States he has been living with his in [place]. States he has been recently diagnosed with moderate to severe dementia. She has several NH names that she has received from [facility] in [facility] and her own contacts. FAUSTINO signed. She would like me to have him go to [facility] since it is in [place] and near his home. I will send out the referral in am. CM will continue to follow and assist with discharge planning/needs. Instrument Engineer: Katy Elaine DCPIA - Discharge Planning Initial Assessment Updated by [id number]: Katy Elaine on 10/11/18 4:14 pm * Is the patient Alert and Oriented? No * PCP [facility]in Dominique in [place] * Pharmacy Unsure of pharmacy * Preadmission Environment Other * Other Environment Fpc * Facility Name Fpc at [facility] * ADLs Total Dependent * Equipment Cane Oxygen Rolling Walker * List name and contact numbers for known caregivers / representatives who currently or will assist patient after discharge: Erika Charlesmoobdulia - DTR - [phone] * Verbal permission to speak to the caregivers and representatives has been obtained from the patient. N/A * Community resources currently utilized None * Additional services required to return to the preadmission environment? Yes * Can the patient safely return to the preadmission environment? No * Has this patient been hospitalized within the prior 30 days at any hospital? Yes External Providers External Provider: [facility] Next Contact Date: Service Request Date: Service Type: Resolution: Reviewer: Comments: [facility] Next Contact Date: Service Request Date: Service Type: Resolution: Reviewer: Comments: Coverage Notice Reviewer: [id number] Ade Elaine Notice Issued Date-Time: 10/11/2018 16:19 Notice Type: Patient Choice Letter Notice Delivered To: Family Member Relationship to Patient: Daughter Customer Service Operator Name: Erika Magana Delivery Method: HAND - Hand Delivered Carmen Days: Prior Verbal Notification: Recipient Understood Notice: Yes Recipient Signature: Yes Med Rec Note Co-signed by Attending: Coverage Notice Comment: 1. [facility] in [place] 2. [facility] [place] in [place] 3. [facility] in [place] 4. [facility] in [place] Reviewer: [id number] - Malou Pelaez Notice Issued Date-Time: 10/15/2018 11:11 Notice Type: Patient Choice Letter Notice Delivered To: Family Member Relationship to Patient: Daughter Customer Service Operator Name: Delivery Method: HAND - Hand Delivered Carmen Days: Prior Verbal Notification: Recipient Understood Notice: Yes Recipient Signature: Yes Med Rec Note Co-signed by Attending: Coverage Notice Comment: [facility] FOR [facility] IN [place]. Last DP export: 10/15/18 11:53 am Patient Name: DASHA MELO Page 79624 at 1643 All edits/amendments must be made on the electronic document DICTATION DATE: 10/15/181641 BLUEPRINTING AND PHOTOCOPY SUPERVISOR: INGA 10/15/181641 RPT#: [id number] DC DATE: STATUS: ADM IN [facility] [address] [place] [address] END OF REPORT
[2018-10-15 20:00] VITALS: BP 122/63
[2018-10-16 00:06] VITALS: BP 115/68
[2018-10-16 04:00] VITALS: BP 123/70
[2018-10-16 05:22] LABS: HEMATOCRIT 28.9 % (42.0-54.0); HEMOGLOBIN 8.3 g/dL (13.5-17.5); MCH 26.1 pg (26.0-34.0); MCHC 28.7 g/dL (31.0-37.0); MCV 90.9 fL (80.0-100.0); MEAN PLATELET VOLUME 9.4 fL (7.4-10.4); PLATELET COUNT 115 10x3/uL (130-400); RBC 3.18 10x6/uL (4.20-6.10); RDW 16.5 % (11.5-14.5)
[2018-10-16 05:23] LABS: WBC 2.7 10x3/uL (4.8-10.8)
[2018-10-16 05:33] LABS: ALBUMIN 1.8 g/dL (3.4-5.0); BILIRUBIN - TOTAL 0.57 mg/dL (0.2-1.3); CALCIUM 8.1 mg/dL (8.5-10.1); CARBON DIOXIDE 29.8 mmol/L (21.0-32.0); CREATININE - SERUM 1.8 mg/dL (0.6-1.3); PHOSPHOROUS 3.6 mg/dL (2.5-4.9); POTASSIUM - SERUM 4.3 mmol/L (3.5-5.1); PROTEIN - SERUM 6.1 g/dL (6.4-8.2); VANCOMYCIN - RANDOM 16.5 ug/mL (10.0-20.0)
[2018-10-16 05:38] LABS: ANION GAP 12.5 mmol/L (8-16)
[2018-10-16 08:21] LABS: LYMPHOCYTES 24 % (15-50); MONOCYTES 4 % (2-11); NEUTROPHILS 71 % (40-80); PLATELET ESTIMATE DECREASED
[2018-10-16 09:51] VITALS: BP 127/77
[2018-10-16 13:11] VITALS: BP 126/73
[2018-10-16 17:40] VITALS: BP 120/62
[2018-10-17] VITALS (7 sets, daily range): BP systolic 129–159; BP diastolic 42–74
[2018-10-17 05:00] LABS: BASOPHILS 0.5 % (0-2); EOSINOPHILS 0 % (0-7); HEMATOCRIT 31.5 % (42.0-54.0); HEMOGLOBIN 9.1 g/dL (13.5-17.5); LYMPHOCYTES 10.6 % (15-50); MCH 26.6 pg (26.0-34.0); MCHC 28.9 g/dL (31.0-37.0); MCV 92.1 fL (80.0-100.0); MEAN PLATELET VOLUME 10.5 fL (7.4-10.4); MONOCYTES 6.5 % (2-11); NEUTROPHILS 76.4 % (40-80); PLATELET COUNT 136 10x3/uL (130-400); RBC 3.42 10x6/uL (4.20-6.10); RDW 16.9 % (11.5-14.5)
[2018-10-17 05:02] LABS: WBC 3.9 10x3/uL (4.8-10.8)
[2018-10-17 05:21] LABS: BILIRUBIN - TOTAL 0.66 mg/dL (0.2-1.3); CALCIUM 8.2 mg/dL (8.5-10.1); CARBON DIOXIDE 29.5 mmol/L (21.0-32.0); CREATININE - SERUM 1.7 mg/dL (0.6-1.3); POTASSIUM - SERUM 4.1 mmol/L (3.5-5.1); PROTEIN - SERUM 6.1 g/dL (6.4-8.2)
[2018-10-17 05:23] LABS: ANION GAP 10.6 mmol/L (8-16)
[2018-10-18 01:51] VITALS: BP 144/53
[2018-10-18 05:41] VITALS: BP 124/58
[2018-10-18 07:20] LABS: ALBUMIN 1.9 g/dL (3.4-5.0); BILIRUBIN - TOTAL 0.88 mg/dL (0.2-1.3); CALCIUM 8.1 mg/dL (8.5-10.1); CARBON DIOXIDE 32.3 mmol/L (21.0-32.0); PHOSPHOROUS 5.5 mg/dL (2.5-4.9); POTASSIUM - SERUM 4.3 mmol/L (3.5-5.1); PROTEIN - SERUM 5.8 g/dL (6.4-8.2)
[2018-10-18 07:23] LABS: MCH 26.5 pg (26.0-34.0); MCHC 28.1 g/dL (31.0-37.0); MEAN PLATELET VOLUME 10.1 fL (7.4-10.4); PLATELET COUNT 117 10x3/uL (130-400); RBC 3.39 10x6/uL (4.20-6.10); RDW 17.4 % (11.5-14.5)
[2018-10-18 07:25] LABS: MCV 94.4 fL (80.0-100.0); WBC 5.2 10x3/uL (4.8-10.8)
[2018-10-18 07:48] LABS: LYMPHOCYTES 7 % (15-50); MONOCYTES 3 % (2-11); NEUTROPHILS 83 % (40-80); PLATELET ESTIMATE DECREASED
--- NOTE | 2018-10-18 12:51 | MORECARE ---
CASE MANAGEMENT DISCHARGE SUMMARY PATIENT: DASHA MELO UNIT: [id number] ADM DATE: 10/09/18 AGE: 77 : 38 SEX: M ROOM/BED: D.2117 AUTHOR: FLORENCIA,DOC PHYSICIAN: REFERRING PHYSICIAN: KYLER CÁRDENAS MD DATE OF SERVICE: 10/18/18 Discharge Plan Patient Name: DASHA MELO Facility: [facility]:[place] : 1940 Planned Disposition: Assisted Facility Anticipated Discharge Date: Discharge Date: Expected LOS: Initial Reviewer: [email or web address] Initial Review Date: 10/09/2018 Generated: 10/18/18 1:51 pm Comments DCP- Discharge Planning Updated by [email or web address]: Malou Pelaez on 10/15/18 3:[address] Patient Name: DASHA MELO Admission Status: Elective Accout number: [id number] Admission Date: 10-09-2018 : 1940 Admission Diagnosis:SHORTNESS OF BREATH Attending: KYLER CÁRDENAS Current LOS: 6 Anticipated DC Date: Planned Disposition: Assisted Facility Primary Insurance: MEDICARE A & B Discharge Planning Comments: FAMILY IS INTERESTED IN HOSPICE CARE. Costume Rental Clerk: Malou Pelaez DCP- Discharge Planning Updated by [id number]: Malou Pelaez on 10/15/18 11:[address] Patient Name: DASHA MELO Admission Status: Elective Accout number: [id number] Admission Date: 10-09-2018 : 1940 Admission Diagnosis:SHORTNESS OF BREATH Attending: KYLER CÁRDENAS Current LOS: 6 Anticipated DC Date: Planned Disposition: Assisted Facility Primary Insurance: MEDICARE A & B Discharge Planning Comments: CM MET WITH PATIENT'S DAUGHTER ERIKA AND SHE STATES THEY WANT [facility] IN [facility] FAUSTINO SIGNED AND DOCUMENTS FAXED TO [facility] AT [phone]. PHONE NUMBER [phone], SPOKE WITH THEM AND WAITING ADOBE MAKER BACK. CM TO FOLLOW AND ASSISST NEEDED WITH DC PLANNING/NEEDS. Costume Rental Clerk: Malou Pelaez DCP- Discharge Planning Updated by [email or web address]: Katy Chele on 10/13/18 10:[address] was here yesterday and spoke with lindy Vela for [facility] in [place]. states she would like her to go to [facility] for SNF when he was discharged from acute care. Will wait on sending referral per Gloria's recommendation until closer to discharge. CM will continue to follow and assist with discharge planning/needs. DCP- Discharge Planning Updated by [id number]: Katy Elaine on 10/11/18 3:[address] Patient Name: DASHA MELO Admission Status: Elective Accout number: [id number] Admission Date: 10-09-2018 : 1940 Admission Diagnosis:SHORTNESS OF BREATH Attending: KYLER CÁRDENAS Current LOS: 2 Anticipated DC Date: Planned Disposition: Assisted Facility Primary Insurance: MEDICARE A & B Discharge Planning Comments: CM met with patient's daughter per her request. Patient is not alert at this time, so all conversation is with daughter. She states her father has been in [facility] for his dementia. States they were working on trying to get him placed in a SNF to transition to LTC. States he has been living with his in [place]. States he has been recently diagnosed with moderate to severe dementia. She has several NH names that she has received from [facility] in [facility] and her own contacts. FAUSTINO signed. She would like me to have him go to [facility] since it is in [place] and near his home. I will send out the referral in am. CM will continue to follow and assist with discharge planning/needs. Costume Rental Clerk: Katy Elaine DCPIA - Discharge Planning Initial Assessment Updated by [email or web address]: Katy Elaine on 10/11/18 4:14 pm * Is the patient Alert and Oriented? No * PCP K[facility]in Dominique in [place] * Pharmacy Unsure of pharmacy * Preadmission Environment Other * Other Environment Skilled Nursing * Facility Name [facility] * ADLs Total Dependent * Equipment Cane Oxygen Rolling Walker * List name and contact numbers for known caregivers / representatives who currently or will assist patient after discharge: Erika Charlesmoobdulia - DTR - [phone] * Verbal permission to speak to the caregivers and representatives has been obtained from the patient. N/A * Community resources currently utilized None * Additional services required to return to the preadmission environment? Yes * Can the patient safely return to the preadmission environment? No * Has this patient been hospitalized within the prior 30 days at any hospital? Yes External Providers External Provider: OTHER-OTHER Next Contact Date: 10/18/2018 Service Request Date: Service Type: Resolution: Reviewer: Comments: Coverage Notice Reviewer: [id number] Ade Elaine Notice Issued Date-Time: 10/11/2018 16:19 Notice Type: Patient Choice Letter Notice Delivered To: Family Member Relationship to Patient: Daughter Fishing Boat Mate Name: Erika Magana Delivery Method: HAND - Hand Delivered Carmen Days: Prior Verbal Notification: Recipient Understood Notice: Yes Recipient Signature: Yes Med Rec Note Co-signed by Attending: Coverage Notice Comment: 1. [facility] in [place] 2. [facility] [place] in [place] 3. [facility] in [place] 4. [facility] in [place] Reviewer: [id number] - Malou Pelaez Notice Issued Date-Time: 10/15/2018 11:11 Notice Type: Patient Choice Letter Notice Delivered To: Family Member Relationship to Patient: Daughter Fishing Boat Mate Name: Delivery Method: HAND - Hand Delivered Carmen Days: Prior Verbal Notification: Recipient Understood Notice: Yes Recipient Signature: Yes Med Rec Note Co-signed by Attending: Coverage Notice Comment: [facility] [place]. Last DP export: 10/15/18 3:42 pm Patient Name: DASHA MELO Page 12875 at 1251 All edits/amendments must be made on the electronic document DICTATION DATE: 10/18/18 1250 APPLIANCES SAMPLE MAKER: INGA 10/18/18 1250 RPT#: [id number] DC DATE: STATUS: ADM IN [facility] [address] [place] [address] END OF REPORT
--- NOTE | 2018-10-18 13:00 | MORECARE ---
CASE MANAGEMENT DISCHARGE SUMMARY PATIENT: DASHA MELO UNIT: [id number] ADM DATE: 10/09/18 AGE: 77 : 38 SEX: M ROOM/BED: D.2117 AUTHOR: FLORENCIA,DOC PHYSICIAN: REFERRING PHYSICIAN: KYLER CÁRDENAS MD DATE OF SERVICE: 10/18/18 Discharge Plan Patient Name: DASHA MELO Facility: [facility]:[place] : 1940 Planned Disposition: Group Home Facility Anticipated Discharge Date: Discharge Date: Expected LOS: Initial Reviewer: [email or web address] Initial Review Date: 10/09/2018 Generated: 10/18/18 1:59 pm Comments DCP- Discharge Planning Updated by [email or web address]: Malou Pelaez on 10/15/18 3:[address] Patient Name: DASHA MELO Admission Status: Elective Accout number: [id number] Admission Date: 10-09-2018 : 1940 Admission Diagnosis:SHORTNESS OF BREATH Attending: KYLER CÁRDENAS Current LOS: 6 Anticipated DC Date: Planned Disposition: Group Home Facility Primary Insurance: MEDICARE A & B Discharge Planning Comments: FAMILY IS INTERESTED IN HOSPICE CARE. Needle Control Cheniller: Malou Pelaez DCP- Discharge Planning Updated by [email or web address]: Malou Pelaez on 10/15/18 11:[address] Patient Name: DASHA MELO Admission Status: Elective Accout number: [id number] Admission Date: 10-09-2018 : 1940 Admission Diagnosis:SHORTNESS OF BREATH Attending: KYLER CÁRDENAS Current LOS: 6 Anticipated DC Date: Planned Disposition: Group Home Facility Primary Insurance: MEDICARE A & B Discharge Planning Comments: CM MET WITH PATIENT'S DAUGHTER ERIKA AND SHE STATES THEY WANT [facility] IN [facility]. FAUSTINO SIGNED AND DOCUMENTS FAXED TO [facility] AT [phone]. PHONE NUMBER [phone], SPOKE WITH THEM AND WAITING REMOTE RUBY ON RAILS DEVELOPER BACK. CM TO FOLLOW AND ASSISST NEEDED WITH DC PLANNING/NEEDS. Needle Control Cheniller: Malou Pelaez DCP- Discharge Planning Updated by [email or web address]: Katy Sepulvedacamilo on 10/13/18 10:[address] was here yesterday and spoke with lindy Vela for [facility] in [place]. states she would like her to go to [facility] for SNF when he was discharged from acute care. Will wait on sending referral per Gloria's recommendation until closer to discharge. CM will continue to follow and assist with discharge planning/needs. DCP- Discharge Planning Updated by [id number]: Katy Elaine on 10/11/18 3:[address] Patient Name: DASHA MELO Admission Status: Elective Accout number: [id number] Admission Date: 10-09-2018 : 1940 Admission Diagnosis:SHORTNESS OF BREATH Attending: KYLER CÁRDENAS Current LOS: 2 Anticipated DC Date: Planned Disposition: Group Home Facility Primary Insurance: MEDICARE A & B Discharge Planning Comments: CM met with patient's daughter per her request. Patient is not alert at this time, so all conversation is with daughter. She states her father has been in [facility] for his dementia. States they were working on trying to get him placed in a SNF to transition to LTC. States he has been living with his in [place]. States he has been recently diagnosed with moderate to severe dementia. She has several NH names that she has received from [facility] in [facility] and her own contacts. FAUSTINO signed. She would like me to have him go to [facility] since it is in [place] and near his home. I will send out the referral in am. CM will continue to follow and assist with discharge planning/needs. Needle Control Cheniller: Katy Elaine DCPIA - Discharge Planning Initial Assessment Updated by [email or web address]: Katy Elaine on 10/11/18 4:14 pm * Is the patient Alert and Oriented? No * PCP Katerin Dominique in [place] * Pharmacy Unsure of pharmacy * Preadmission Environment Other * Other Environment [facility] * Facility Name [facility] at [facility] * ADLs Total Dependent * Equipment Cane Oxygen Rolling Walker * List name and contact numbers for known caregivers / representatives who currently or will assist patient after discharge: Erika Charlesmoobdulia - DTR - [phone] * Verbal permission to speak to the caregivers and representatives has been obtained from the patient. N/A * Community resources currently utilized None * Additional services required to return to the preadmission environment? Yes * Can the patient safely return to the preadmission environment? No * Has this patient been hospitalized within the prior 30 days at any hospital? Yes External Providers External Provider: OTHER-OTHER Next Contact Date: 10/18/2018 Service Request Date: Service Type: Resolution: Reviewer: Comments: Coverage Notice Reviewer: [id number] Ade Elaine Notice Issued Date-Time: 10/11/2018 16:19 Notice Type: Patient Choice Letter Notice Delivered To: Family Member Relationship to Patient: Daughter Break Off Worker Name: Erika Magana Delivery Method: HAND - Hand Delivered Carmen Days: Prior Verbal Notification: Recipient Understood Notice: Yes Recipient Signature: Yes Med Rec Note Co-signed by Attending: Coverage Notice Comment: 1. [facility] in [place] 2. [facility] [place] in [place] 3. [facility] in [place] 4. [facility] in [place] Reviewer: [id number] - Malou Pelaez Notice Issued Date-Time: 10/15/2018 11:11 Notice Type: Patient Choice Letter Notice Delivered To: Family Member Relationship to Patient: Daughter Break Off Worker Name: Delivery Method: HAND - Hand Delivered Carmen Days: Prior Verbal Notification: Recipient Understood Notice: Yes Recipient Signature: Yes Med Rec Note Co-signed by Attending: Coverage Notice Comment: [facility] [place]. Last DP export: 10/18/18 11:51 am Patient Name: DASHA MELO Page 08222 at 1300 All edits/amendments must be made on the electronic document DICTATION DATE: 10/18/18 1259 STORE HAND: INGA 10/18/18 1259 RPT#: [id number] DC DATE: STATUS: ADM IN [facility] [address] [place] [address] END OF REPORT
--- NOTE | 2018-10-18 13:09 | MORECARE ---
CASE MANAGEMENT DISCHARGE SUMMARY PATIENT: DASHA MELO UNIT: [id number] ADM DATE: 10/09/18 AGE: 77 : 38 SEX: M ROOM/BED: D.2117 AUTHOR: FLORENCIA,DOC PHYSICIAN: REFERRING PHYSICIAN: KYLER CÁRDENAS MD DATE OF SERVICE: 10/18/18 Discharge Plan Patient Name: DASHA MELO Facility: [facility]:[place] : 1940 Planned Disposition: Nursing Facility [facility] Anticipated Discharge Date: 10/18/18 Discharge Date: Expected LOS: 9 Initial Reviewer: [email or web address] Initial Review Date: 10/09/2018 Generated: 10/18/18 2:09 pm Comments DCP- Discharge Planning Updated by [email or web address]: Malou Pelaez on 10/15/18 3:[address] Patient Name: DASHA MELO Admission Status: Elective Accout number: [id number] Admission Date: 10-09-2018 : 1940 Admission Diagnosis:SHORTNESS OF BREATH Attending: KLYER CÁRDENAS Current LOS: 6 Anticipated DC Date: Planned Disposition: Group Home Facility Primary Insurance: MEDICARE A & B Discharge Planning Comments: FAMILY IS INTERESTED IN HOSPICE CARE. Hardware Developer: Malou Pelaez DCP- Discharge Planning Updated by [email or web address]: Malou Pelaez on 10/15/18 11:[address] Patient Name: DASHA MELO Admission Status: Elective Accout number: [id number] Admission Date: 10-09-2018 : 1940 Admission Diagnosis:SHORTNESS OF BREATH Attending: KYLER CÁRDENAS Current LOS: 6 Anticipated DC Date: Planned Disposition: Group Home Facility Primary Insurance: MEDICARE A & B Discharge Planning Comments: CM MET WITH PATIENT'S DAUGHTER ERIKA AND SHE STATES THEY WANT [facility] IN [facility] FAUSTINO SIGNED AND DOCUMENTS FAXED TO [facility] AT [phone]. PHONE NUMBER [phone], SPOKE WITH THEM AND WAITING BANQUET STEWARD BACK. CM TO FOLLOW AND ASSISST NEEDED WITH DC PLANNING/NEEDS. Hardware Developer: Malou Pelaez DCP- Discharge Planning Updated by [email or web address]: Katy Chele on 10/13/18 10:[address] was here yesterday and spoke with lindy Vela for [facility] in [place]. states she would like her to go to [facility] for SNF when he was discharged from acute care. Will wait on sending referral per Gloria's recommendation until closer to discharge. CM will continue to follow and assist with discharge planning/needs. DCP- Discharge Planning Updated by [email or web address]: Katy Elaine on 10/11/18 3:[address] Patient Name: DASHA MELO Admission Status: Elective Accout number: [id number] Admission Date: 10-09-2018 : 1940 Admission Diagnosis:SHORTNESS OF BREATH Attending: KYLER CÁRDENAS Current LOS: 2 Anticipated DC Date: Planned Disposition: Group Home Facility Primary Insurance: MEDICARE A & B Discharge Planning Comments: CM met with patient's daughter per her request. Patient is not alert at this time, so all conversation is with daughter. She states her father has been in alf for his dementia. States they were working on trying to get him placed in a SNF to transition to LTC. States he has been living with his in [place]. States he has been recently diagnosed with moderate to severe dementia. She has several NH names that she has received from [facility] in [place] and her own contacts. FAUSTINO signed. She would like me to have him go to [facility] since it is in [place] and near his home. I will send out the referral in am. CM will continue to follow and assist with discharge planning/needs. Hardware Developer: Kayt Elaine DCPIA - Discharge Planning Initial Assessment Updated by [email or web address]: Katy Elaine on 10/11/18 4:14 pm * Is the patient Alert and Oriented? No * PCP Katerin Dominique in [place] * Pharmacy Unsure of pharmacy * Preadmission Environment Other * Other Environment Penitentiary * Facility Name [facility] * ADLs Total Dependent * Equipment Cane Oxygen Rolling Walker * List name and contact numbers for known caregivers / representatives who currently or will assist patient after discharge: Erika Charlesmoobdulia - DTR - [phone] * Verbal permission to speak to the caregivers and representatives has been obtained from the patient. N/A * Community resources currently utilized None * Additional services required to return to the preadmission environment? Yes * Can the patient safely return to the preadmission environment? No * Has this patient been hospitalized within the prior 30 days at any hospital? Yes Coverage Notice Reviewer: [email or web address] Ade Elaine Notice Issued Date-Time: 10/11/2018 16:19 Notice Type: Patient Choice Letter Notice Delivered To: Family Member Relationship to Patient: Daughter Sales Support Coordinator Name: Erika Magana Delivery Method: HAND - Hand Delivered Carmen Days: Prior Verbal Notification: Recipient Understood Notice: Yes Recipient Signature: Yes Med Rec Note Co-signed by Attending: Coverage Notice Comment: 1. [facility] [place] in [place] 2. [facility] [place] in [place] 3. [facility] in [place] 4. [facility] in [place] Reviewer: [id number] - Malou Pelaez Notice Issued Date-Time: 10/15/2018 11:11 Notice Type: Patient Choice Letter Notice Delivered To: Family Member Relationship to Patient: Daughter Sales Support Coordinator Name: Delivery Method: HAND - Hand Delivered Carmen Days: Prior Verbal Notification: Recipient Understood Notice: Yes Recipient Signature: Yes Med Rec Note Co-signed by Attending: Coverage Notice Comment: [facility] [place]. Reviewer: [email or web address] Ade Rocha Notice Issued Date-Time: 10/18/2018 11:25 Notice Type: IM Discharge Notice Notice Delivered To: Family Member Relationship to Patient: Spouse Sales Support Coordinator Name: ANGELIKA MELO Delivery Method: HAND - Hand Delivered Carmen Days: Prior Verbal Notification: Recipient Understood Notice: Yes Recipient Signature: Yes Med Rec Note Co-signed by Attending: Coverage Notice Comment: Reviewer: [email or web address] Rocha Notice Issued Date-Time: 10/18/2018 12:44 Notice Type: IM Discharge Notice Notice Delivered To: Family Member Relationship to Patient: Spouse Sales Support Coordinator Name: ANGELIKA MELO Delivery Method: HAND - Hand Delivered Carmen Days: Prior Verbal Notification: Recipient Understood Notice: Yes Recipient Signature: Yes Med Rec Note Co-signed by Attending: Coverage Notice Comment: [facility] Last DP export: 10/18/18 12:00 pm Patient Name: DASHA MELO Page 89246 at 1309 All edits/amendments must be made on the electronic document DICTATION DATE: 10/18/18 1309 [place] MANAGER: INGA 10/18/18 1309 RPT#: [id number] DC DATE: STATUS: ADM IN [facility] [address] [place] [address] END OF REPORT
--- NOTE | 2018-10-18 13:22 | MORECARE ---
CASE MANAGEMENT DISCHARGE SUMMARY PATIENT: DASHA MELO UNIT: [id number] ADM DATE: 10/09/18 AGE: 77 : 38 SEX: M ROOM/BED: D.3752 AUTHOR: FLORENCIA,DOC PHYSICIAN: REFERRING PHYSICIAN: KYLER CÁRDENAS MD DATE OF SERVICE: 10/18/18 Discharge Plan Patient Name: DASHA MELO Facility: [facility]:[place] : 1940 Planned Disposition: Nursing Facility M[facility]A Cert Anticipated Discharge Date: 10/18/18 Discharge Date: Expected LOS: 9 Initial Reviewer: [id number] Initial Review Date: 10/09/2018 Generated: 10/18/18 2:22 pm Comments DCP- Discharge Planning Updated by [id number]: Abisai Rocha on 10/18/18 12:[address] Patient Name: DASHA MELO Encounter No: [id number] : 1940 Primary Insurance: MEDICARE A & B Anticipated DC Date: 10-18-2018 Planned Disposition: Nursing Facility [facility] Cert External Planned Provider: [facility] OR [facility], [facility] MEDICAID BED DCP follow-up note: CM RECEIVED REQUEST TO MEET WITH PT'S SPOUSE IN ROOM REGARDING UPDATE ON HOSPICE PLACEMENT. CM MET WITH PT AND SPOUSE IN ROOM. PT IS NOT ORIENTED, YELLING OUT TO "HELP ME" REPEATEDLY. PT'S SPOUSE REPORTS THAT THE FISH PROTECTOR WAS WORKING ON [facility] ON THURSDAY AND NEEDED TO GET PT INTO A CARE HOME FOR HOSPICE AND SHE HAS HEARD NOTHING. CM REVIEWED CHART WHICH INDICATED REFERRALS TO [facility] AND [facility]. PT'S SPOUSE REPORTS HER DAUGHTER SIGNED THE CHOICE FOR THOSE THEY ARE CLOSER TO HER DAUGHTER. PT'S SPOUSE IN AGREEMENT IF THEY WILL ACCEPT, SPOUSE WANTS PT DISCHARGED TO CARE HOME WITH HOSPICE TODAY. IMPORTANT MESSAGE FROM MEDICARE PROVIDED AND EXPLAINED. CM CALLED TATIANA OF [facility] AND [facility], ; TATIANA ADVISED [facility] HAS [facility] WAITING LIST AND [facility] NEEDS UPDATE TO CONSIDER FOR ADMISSION. THEY DO NOT CONTRACT WITH [facility] AND USE [facility]. CM FAXED UPDATE TO [facility] AT [phone]. CM NOTIFIED PT'S SPOUSE WHO REPORTS NO PREFERENCE ON HOSPICE COMPANY AND [facility] IS OK FOR SPRINKLER WORKER PLACEMENT WITH EITHER HOSPICE COMPANY. CM CALLED [facility] IN [place], , SPOKE TO YONATHAN WHO INFORMED CM THAT SHE SPOKE TO PT'S SPOUSE AND THEY CAN CONTRACT FOR HOSPICE AT THE [facility] WHICH IS A "NICE FACILITY. YONATHAN OFFERED TO CALL PT'S SPOUSE TO SEE IF SHE WILL CONSENT TO REFERRAL THERE, CM INFORMED YONATHAN THAT CM IS REPONSIBLE FOR PLACEMENT AND WILL TAKE CARE OF IT. CM MET AGAIN WITH PT'S SPOUSE IN ROOM WHO REPORTS THAT SHE DID TALK TO YONATHAN AT [facility] AND WOULD LIKE A REFERRAL SENT TO [facility] IT IS CLOSER TO HER HOME THAN [facility], ONLY 20 MILES PER PT'S SPOUSE. CHOICE LETTER SIGNED. PT'S SPOUSE REPORTS THAT PT WILL GO TO THE FIRST ACCEPTING FACILITY TODAY. [facility], , SPOKE TO AGUSTÍN WHO INFORMED CM THAT [facility] IS OUT TO [facility] AND WILL SCREEN FOR ADMISSION TODAY. CM FA[facility]ED REFERRAL TO [facility], . CM WAITING ADMISSION DETERMINATIONS FROM [facility] AND [facility]. IF PT GOES TO [facility], PT WILL USE [facility]; IF PT GOES TO [facility], PT'S SPOUSE WILL [facility]SE [facility]EN [facility]. Abisai Rocha, CASE MANAGEMENT DCP- Discharge Planning Updated by [id number]: Malou Pelaez on 10/15/18 3:[address] Patient Name: DASHA MELO Admission Status: Elective Accout number: [id number] Admission Date: 10-09-2018 : 1940 Admission Diagnosis:SHORTNESS OF BREATH Attending: KYLER CÁRDENAS Current LOS: 6 Anticipated DC Date: Planned Disposition: [facility] Facility Primary Insurance: MEDICARE A & B Discharge Planning Comments: FAMILY IS INTERESTED IN HOSPICE CARE. Bellhop: Malou Pelaez DCP- Discharge Planning Updated by [id number]: Malou Pelaez on 10/15/18 11:[address] Patient Name: DASHA MELO Admission Status: Elective Accout number: [id number] Admission Date: 10-09-2018 : 1940 Admission Diagnosis:SHORTNESS OF BREATH Attending: KYLER CÁRDENAS Current LOS: 6 Anticipated DC Date: Planned Disposition: [facility] Facility Primary Insurance: MEDICARE A & B Discharge Planning Comments: CM MET WITH PATIENT'S DAUGHTER ERIKA AND SHE STATES THEY WANT [facility] IN [facility]. FAUSTINO SIGNED AND DOCUMENTS FAXED TO [facility] AT [phone]. PHONE NUMBER [phone], SPOKE WITH THEM AND WAITING SKIN THERAPIST BACK. CM TO FOLLOW AND ASSISST NEEDED WITH DC PLANNING/NEEDS. Bellhop: Malou Pelaez DCP- Discharge Planning Updated by [id number]: Katy Sepulvedacamilo on 10/13/18 10:[address] was here yesterday and spoke with lindy Vela for [place] in [place]. states she would like her to go to [place] for SNF when he was discharged from acute care. Will wait on sending referral per Tatiana's recommendation until closer to discharge. CM will continue to follow and assist with discharge planning/needs. DCP- Discharge Planning Updated by [id number]: Katy Chele on 10/11/18 3:[address] Patient Name: DASHA MELO Admission Status: Elective Accout number: [id number] Admission Date: 10-09-2018 : 1940 Admission Diagnosis:SHORTNESS OF BREATH Attending: KYLER CÁRDENAS Current LOS: 2 Anticipated DC Date: Planned Disposition: [facility] Facility Primary Insurance: MEDICARE A & B Discharge Planning Comments: CM met with patient's daughter per her request. Patient is not alert at this time, so all conversation is with daughter. She states her father has been in care home for his dementia. States they were working on trying to get him placed in a SNF to transition to LTC. States he has been living with his in [place]. States he has been recently diagnosed with moderate to severe dementia. She has several NH names that she has received from [facility] in care home and her own contacts. FAUSTINO signed. She would like me to have him go to [facility] first since it is in [place] and near his home. I will send out the referral in am. CM will continue to follow and assist with discharge planning/needs. Bellhop: Katy Elaine DCPIA - Discharge Planning Initial Assessment Updated by [id number]: Katy Elaine on 10/11/18 4:14 pm * Is the patient Alert and Oriented? No * PCP Katerin Dominique in [place] * Pharmacy Unsure of pharmacy * Preadmission Environment Other * Other Environment Residential * Facility Name [facility] * ADLs Total Dependent * Equipment Cane Oxygen Rolling Walker * List name and contact numbers for known caregivers / representatives who currently or will assist patient after discharge: Erika [facility] - [phone] * Verbal permission to speak to the caregivers and representatives has been obtained from the patient. N/A * Community resources currently utilized None * Additional services required to return to the preadmission environment? Yes * Can the patient safely return to the preadmission environment? No * Has this patient been hospitalized within the prior 30 days at any hospital? Yes Coverage Notice Reviewer: [id number] - Katy Elaine Notice Issued Date-Time: 10/11/2018 16:19 Notice Type: Patient Choice Letter Notice Delivered To: Family Member Relationship to Patient: Daughter Nuclear Unit Operator Name: Erika Magana Delivery Method: HAND - Hand Delivered Carmen Days: Prior Verbal Notification: Recipient Understood Notice: Yes Recipient Signature: Yes Med Rec Note Co-signed by Attending: Coverage Notice Comment: 1. [facility] in [place] 2. [facility] [place] in [place] 3. [facility] in [place] 4. [place] in [place] Reviewer: [id number] - Malou Pelaez Notice Issued Date-Time: 10/15/2018 11:11 Notice Type: Patient Choice Letter Notice Delivered To: Family Member Relationship to Patient: Daughter Nuclear Unit Operator Name: Delivery Method: HAND - Hand Delivered Carmen Days: Prior Verbal Notification: Recipient Understood Notice: Yes Recipient Signature: Yes Med Rec Note Co-signed by Attending: Coverage Notice Comment: FAUSTINO FOR [facility] [place]. Reviewer: [id number] Ade Rocha Notice Issued Date-Time: 10/18/2018 11:25 Notice Type: IM Discharge Notice Notice Delivered To: Family Member Relationship to Patient: Spouse Nuclear Unit Operator Name: ANGELIKA MELO Delivery Method: HAND - Hand Delivered Carmen Days: Prior Verbal Notification: Recipient Understood Notice: Yes Recipient Signature: Yes Med Rec Note Co-signed by Attending: Coverage Notice Comment: Reviewer: [id number] Ade Rocha Notice Issued Date-Time: 10/18/2018 12:44 Notice Type: IM Discharge Notice Notice Delivered To: Family Member Relationship to Patient: Spouse Nuclear Unit Operator Name: ANGELIKA MELO Delivery Method: HAND - Hand Delivered Carmen Days: Prior Verbal Notification: Recipient Understood Notice: Yes Recipient Signature: Yes Med Rec Note Co-signed by Attending: Coverage Notice Comment: [facility] Last DP export: 10/18/18 12:09 pm Patient Name: DASHA MELO Page [id number] at 1322 All edits/amendments must be made on the electronic document DICTATION DATE: 10/18/18 1322 WIND SCIENCE AND PLANNING: INGA 10/18/18 1322 RPT#: [id number] DC DATE: STATUS: ADM IN [facility] [address] [place] [address] END OF REPORT
--- NOTE | 2018-10-18 16:37 | MORECARE ---
CASE MANAGEMENT DISCHARGE SUMMARY PATIENT: DASHA MELO UNIT: [id number] ADM DATE: 10/09/18 AGE: 77 : 38 SEX: M ROOM/BED: D.5377 AUTHOR: FLORENCIA,DOC PHYSICIAN: REFERRING PHYSICIAN: KYLER CÁRDENAS MD DATE OF SERVICE: 10/18/18 Discharge Plan Patient Name: DASHA MELO Facility: [facility]:[place] : 1940 Planned Disposition: Hospice Medical Facility Anticipated Discharge Date: 10/18/18 Discharge Date: Expected LOS: 9 Initial Reviewer: [id number] Initial Review Date: 10/09/2018 Generated: 10/18/18 5:37 pm Comments DCP- Discharge Planning Updated by [id number]: Abisai Rocha on 10/18/18 12:[address] Patient Name: DASHA MELO Encounter No: [id number] : 1940 Primary Insurance: MEDICARE A & B Anticipated DC Date: 10-18-2018 Planned Disposition: Nursing Facility M[facility]A Cert External Planned Provider: [facility] OR [facility], SURGICAL LEAD CARE MEDICAID BED DCP follow-up note: CM RECEIVED REQUEST TO MEET WITH PT'S SPOUSE IN ROOM REGARDING UPDATE ON HOSPICE PLACEMENT. CM MET WITH PT AND SPOUSE IN ROOM. PT IS NOT ORIENTED, YELLING OUT TO "HELP ME" REPEATEDLY. PT'S SPOUSE REPORTS THAT THE THEATER PROJECTIONIST WAS WORKING ON [facility] ON THURSDAY AND NEEDED TO GET PT INTO A CARE HOME FOR HOSPICE AND SHE HAS HEARD NOTHING. CM REVIEWED CHART WHICH INDICATED REFERRALS TO [facility] AND [facility]. PT'S SPOUSE REPORTS HER DAUGHTER SIGNED THE CHOICE FOR THOSE THEY ARE CLOSER TO HER DAUGHTER. PT'S SPOUSE IN AGREEMENT IF THEY WILL ACCEPT, SPOUSE WANTS PT DISCHARGED TO CARE HOME WITH HOSPICE TODAY. IMPORTANT MESSAGE FROM MEDICARE PROVIDED AND EXPLAINED. CM CALLED TATIANA OF [facility] AND [facility], ; TATIANA ADVISED [facility] HAS [facility] WAITING LIST AND [facility] NEEDS UPDATE TO CONSIDER FOR ADMISSION. THEY DO NOT CONTRACT WITH [facility] AND USE [facility]. CM FAXED UPDATE TO [facility] AT [phone]. CM NOTIFIED PT'S SPOUSE WHO REPORTS NO PREFERENCE ON HOSPICE COMPANY AND [facility] IS OK FOR LONGTERM PLACEMENT WITH EITHER HOSPICE COMPANY. CM CALLED [facility] IN [place], , SPOKE TO YONATHAN WHO INFORMED CM THAT SHE SPOKE TO PT'S SPOUSE AND THEY CAN CONTRACT FOR HOSPICE AT THE [facility] WHICH IS A "NICE FACILITY. YONATHAN OFFERED TO CALL PT'S SPOUSE TO SEE IF SHE WILL CONSENT TO REFERRAL THERE, CM INFORMED YONATHAN THAT CM IS REPONSIBLE FOR PLACEMENT AND WILL TAKE CARE OF IT. CM MET AGAIN WITH PT'S SPOUSE IN ROOM WHO REPORTS THAT SHE DID TALK TO YONATHAN AT [facility] AND WOULD LIKE A REFERRAL SENT TO [facility] IT IS CLOSER TO HER HOME THAN [facility], ONLY 20 MILES PER PT'S SPOUSE. CHOICE LETTER SIGNED. PT'S SPOUSE REPORTS THAT PT WILL GO TO THE FIRST ACCEPTING FACILITY TODAY. CM [facility]ED [facility], , SPOKE TO AGUSTÍN WHO INFORMED CM THAT [facility] IS OUT TO [facility] AND WILL SCREEN FOR ADMISSION TODAY. CM FAXED REFERRAL TO [facility] AND [facility], . CM WAITING ADMISSION DETERMINATIONS FROM [facility] AND [facility] AND [facility] AND [facility]. IF PT GOES TO [facility], PT WILL USE [facility]; IF PT GOES TO [facility], PT'S SPOUSE WILL [facility]SE [facility]EN [facility]. Abisai Rocha, CASE MANAGEMENT DCP- Discharge Planning Updated by [id number]: Malou Pelaez on 10/15/18 3:[address] Patient Name: DASHA MELO Admission Status: Elective Accout number: [id number] Admission Date: 10-09-2018 : 1940 Admission Diagnosis:SHORTNESS OF BREATH Attending: KYLER CÁRDENAS Current LOS: 6 Anticipated DC Date: Planned Disposition: Alf Facility Primary Insurance: MEDICARE A & B Discharge Planning Comments: FAMILY IS INTERESTED IN HOSPICE CARE. Clothing Pattern Preparer: Malou Pelaez DCP- Discharge Planning Updated by [email or web address]: Malou Pelaez on 10/15/18 11:[address] Patient Name: DASHA MELO Admission Status: Elective Accout number: [id number] Admission Date: 10-09-2018 : 1940 Admission Diagnosis:SHORTNESS OF BREATH Attending: KYLER CÁRDENAS Current LOS: 6 Anticipated DC Date: Planned Disposition: Alf Facility Primary Insurance: MEDICARE A & B Discharge Planning Comments: CM MET WITH PATIENT'S DAUGHTER ERIKA AND SHE STATES THEY WANT [facility] IN [facility]. FAUSTINO SIGNED AND DOCUMENTS FAXED TO [facility] AT [phone]. PHONE NUMBER [phone], SPOKE WITH THEM AND WAITING EXPOSURE MACHINE OPERATOR BACK. CM TO FOLLOW AND ASSISST NEEDED WITH DC PLANNING/NEEDS. Clothing Pattern Preparer: Malou Pelaez DCP- Discharge Planning Updated by [id number]: Katy Chele on 10/13/18 10:[address] was here yesterday and spoke with lindy Vela for [facility] in [place]. states she would like her to go to [facility] for SNF when he was discharged from acute care. Will wait on sending referral per Tatiana's recommendation until closer to discharge. CM will continue to follow and assist with discharge planning/needs. DCP- Discharge Planning Updated by [email or web address]: Katy Elaine on 10/11/18 3:[address] Patient Name: DASHA MELO Admission Status: Elective Accout number: [id number] Admission Date: 10-09-2018 : 1940 Admission Diagnosis:SHORTNESS OF BREATH Attending: KYLER CÁRDENAS Current LOS: 2 Anticipated DC Date: Planned Disposition: Alf Facility Primary Insurance: MEDICARE A & B Discharge Planning Comments: CM met with patient's daughter per her request. Patient is not alert at this time, so all conversation is with daughter. She states her father has been in skilled nursing for his dementia. States they were working on trying to get him placed in a SNF to transition to LTC. States he has been living with his in [place]. States he has been recently diagnosed with moderate to severe dementia. She has several NH names that she has received from [facility] in skilled nursing and her own contacts. FAUSTINO signed. She would like me to have him go to [facility] first since it is in [place] and near his home. I will send out the referral in am. CM will continue to follow and assist with discharge planning/needs. Clothing Pattern Preparer: Katy Elaine DCPIA - Discharge Planning Initial Assessment Updated by [id number]: Katy Elaine on 10/11/18 4:14 pm * Is the patient Alert and Oriented? No * PCP Katerin Dominique in [place] * Pharmacy Unsure of pharmacy * Preadmission Environment Other * Other Environment Longterm * Facility Name Longterm at [facility] * ADLs Total Dependent * Equipment Cane Oxygen Rolling Walker * List name and contact numbers for known caregivers / representatives who currently or will assist patient after discharge: Erika Urbano [facility] - [phone] * Verbal permission to speak to the caregivers and representatives has been obtained from the patient. N/A * Community resources currently utilized None * Additional services required to return to the preadmission environment? Yes * Can the patient safely return to the preadmission environment? No * Has this patient been hospitalized within the prior 30 days at any hospital? Yes Coverage Notice Reviewer: [id number] - Katy Elaine Notice Issued Date-Time: 10/11/2018 16:19 Notice Type: Patient Choice Letter Notice Delivered To: Family Member Relationship to Patient: Daughter Rn Perinatal Name: Erika Magana Delivery Method: HAND - Hand Delivered Carmen Days: Prior Verbal Notification: Recipient Understood Notice: Yes Recipient Signature: Yes Med Rec Note Co-signed by Attending: Coverage Notice Comment: 1. [facility] in [place] 2. [facility] in [place] [facility]. [facility] [place] 4. [facility] in [place] Reviewer: [id number] - Malou Pelaez Notice Issued Date-Time: 10/15/2018 11:11 Notice Type: Patient Choice Letter Notice Delivered To: Family Member Relationship to Patient: Daughter Rn Perinatal Name: Delivery Method: HAND - Hand Delivered Carmen Days: Prior Verbal Notification: Recipient Understood Notice: Yes Recipient Signature: Yes Med Rec Note Co-signed by Attending: Coverage Notice Comment: [facility] FOR [facility] [place]. Reviewer: [id number] Ade Rocha Notice Issued Date-Time: 10/18/2018 11:25 Notice Type: IM Discharge Notice Notice Delivered To: Family Member Relationship to Patient: Spouse Rn Perinatal Name: ANGELIKA MELO Delivery Method: HAND - Hand Delivered Carmen Days: Prior Verbal Notification: Recipient Understood Notice: Yes Recipient Signature: Yes Med Rec Note Co-signed by Attending: Coverage Notice Comment: Reviewer: [id number] Ade Rocha Notice Issued Date-Time: 10/18/2018 12:44 Notice Type: IM Discharge Notice Notice Delivered To: Family Member Relationship to Patient: Spouse Rn Perinatal Name: ANGELIKA MELO Delivery Method: HAND - Hand Delivered Carmen Days: Prior Verbal Notification: Recipient Understood Notice: Yes Recipient Signature: Yes Med Rec Note Co-signed by Attending: Coverage Notice Comment: [facility] Last DP export: 10/18/18 12:22 pm Patient Name: DASHA MELO Page [id number] at 1637 All edits/amendments must be made on the electronic document DICTATION DATE: 10/18/18 1636 WEB SEARCH EVALUATOR: INGA 10/18/18 1636 RPT#: [id number] DC DATE: STATUS: ADM IN [facility] [address] [place] [address] END OF REPORT
--- NOTE | 2018-10-18 16:44 | MORECARE ---
CASE MANAGEMENT DISCHARGE SUMMARY PATIENT: DASHA MELO UNIT: [id number] ADM DATE: 10/09/18 AGE: 77 : 38 SEX: M ROOM/BED: D.6637 AUTHOR: FLORENCIA,DOC PHYSICIAN: REFERRING PHYSICIAN: KYLER CÁRDENAS MD DATE OF SERVICE: 10/18/18 Discharge Plan Patient Name: DASHA MELO Facility: [facility]:[place] : 1940 Planned Disposition: Hospice Medical Facility Anticipated Discharge Date: 10/18/18 Discharge Date: Expected LOS: 9 Initial Reviewer: [id number] Initial Review Date: 10/09/2018 Generated: 10/18/18 5:44 pm Comments DCP- Discharge Planning Updated by [id number]: Abisai Rocha on 10/18/18 3:[address] Patient Name: DASHA MELO Encounter No: [id number] : 1940 Primary Insurance: MEDICARE A & B Anticipated DC Date: 10-18-2018 Planned Disposition: Hospice Medical Facility External Planned Provider: [facility] DCP follow-up note: WINDY RECEIVED CALL FROM TATIANA OF [facility], PT'S DAILY RATE FOR ASSISTED CARE WILL BE $175 PER DAY; WINDY SPOKE TO [facility] WHO INFORMED CM THAT PT'S DAILY RATE WOULD BE $157 PER DAY. WINDY NOTIFIED PT'S SPOUSE WHO REPORTS SHE WANTS TO DISCUSS THIS WITH FAMILY BEFORE MAKING FURTHER DECISIONS REGARDING PLACEMENT. WINDY LATER RECEIVED TELEPHONE MESSAGE FROM PT'S SPOUSE, ANGELIKA, WHO ASKED IF PT CAN STAY FOR A FEW MORE DAYS IN THE HOSPITAL WHILE ANGELIKA ARRANGED A MEETING WITH HER AFTERSCHOOL. WINDY MET WITH PT'S SPOUSE IN ROOM WITH PT; DR. ROWE ALSO PRESENT. FAMILY CONCERNED ABOUT FINANCIAL CONSIDERATIONS OF PLACING PT IN ASSISTED. WINDY REVIEWED CHART AND DISCUSSED POSSIBILITY OF INPATIENT HOSPICE AT [facility]. ANGELIKA REPORTS SHE WAS THINKING THAT PT MAY NOT MAKE IT TO THE ASSISTED IF THE MEDICATIONS WERE STOPPED AND MAY IN THE AMBULANCE. CM DISCUSSED HOSPICE PROVIDERS AND OPTIONS. ANGELIKA WOULD LIKE TO HAVE PT EVALUATED BY [facility] TO SEE IF PT MAY STAY AT [facility] FOR HOSPICE CARE. WINDY CALLED [facility], , SPOKE TO ABDOULAYE WHO TOOK REFERRAL INFORMATION. CM FAXED REFERRAL TO [facility] AT [phone]. CM WAITING INPATIENT HOSPICE EVALUATION AND ADMISSION DETERMINATION FROM [facility]. Abisai Rocha, CASE MANAGEMENT DCP- Discharge Planning Updated by [id number]: Abisai Rocha on 10/18/18 12:[address] Patient Name: DASHA MELO Encounter No: [id number] : 1940 Primary Insurance: MEDICARE A & B Anticipated DC Date: 10-18-2018 Planned Disposition: Nursing Facility [facility] Cert External Planned Provider: [facility] OR [facility], VERIFYING SPECIALIST C[employer] MEDICAID BED DCP follow-up note: CM RECEIVED REQUEST TO MEET WITH PT'S SPOUSE IN ROOM REGARDING UPDATE ON HOSPICE PLACEMENT. CM MET WITH PT AND SPOUSE IN ROOM. PT IS NOT ORIENTED, YELLING OUT TO "HELP ME" REPEATEDLY. PT'S SPOUSE REPORTS THAT THE CNA LTC WAS WORKING ON [facility] ON THURSDAY AND NEEDED TO GET PT INTO A ASSISTED FOR HOSPICE AND SHE HAS HEARD NOTHING. CM REVIEWED CHART WHICH INDICATED REFERRALS TO [facility] AND [facility]. PT'S SPOUSE REPORTS HER DAUGHTER SIGNED THE CHOICE FOR THOSE THEY ARE CLOSER TO HER DAUGHTER. PT'S SPOUSE IN AGREEMENT IF THEY WILL ACCEPT, SPOUSE WANTS PT DISCHARGED TO ASSISTED WITH HOSPICE TODAY. IMPORTANT MESSAGE FROM MEDICARE PROVIDED AND EXPLAINED. CM CALLED TATIANA OF [facility] AND [facility], ; TATIANA ADVISED [facility] HAS INTERMEDIATE CARE WAITING LIST AND [facility] NEEDS UPDATE TO CONSIDER FOR ADMISSION. THEY DO NOT CONTRACT WITH [facility] AND USE [facility] OR [facility]. CM FAXED UPDATE TO [facility] AT [phone]. CM NOTIFIED PT'S SPOUSE WHO REPORTS NO PREFERENCE ON HOSPICE COMPANY AND [facility] IS OK FOR INTERMEDIATE PLACEMENT WITH EITHER HOSPICE COMPANY. CM CALLED [facility] IN [place], , SPOKE TO YONATHAN WHO INFORMED CM THAT SHE SPOKE TO PT'S SPOUSE AND THEY CAN CONTRACT FOR HOSPICE AT THE [facility] WHICH IS A "NICE FACILITY. YONATHAN OFFERED TO CALL PT'S SPOUSE TO SEE IF SHE WILL CONSENT TO REFERRAL THERE, WINDY INFORMED YONATHAN THAT CM IS REPONSIBLE FOR PLACEMENT AND WILL TAKE CARE OF IT. WINDY MET AGAIN WITH PT'S SPOUSE IN ROOM WHO REPORTS THAT SHE DID TALK TO YONATHAN AT [facility] AND WOULD LIKE A REFERRAL SENT TO [facility] HER HOME THAN [facility], ONLY 20 MILES PER PT'S SPOUSE. CHOICE LETTER SIGNED. PT'S SPOUSE REPORTS THAT PT WILL GO TO THE FIRST ACCEPTING FACILITY TODAY. CM CALLED [facility], , SPOKE TO AGUSTÍN WHO INFORMED CM THAT [facility] IS OUT TO [facility] AND WILL SCREEN FOR ADMISSION TODAY. CM FAXED REFERRAL TO [facility], . CM WAITING ADMISSION DETERMINATIONS FROM [facility] AND [facility]. IF PT GOES TO [facility], PT WILL USE [facility]; IF PT GOES TO [facility], PT'S SPOUSE WILL CHOOSE BETWEEN [facility] AND [facility]. Abisai Rocha, CASE MANAGEMENT DCP- Discharge Planning Updated by [id number]: Malou Pelaez on 10/15/18 3:[address] Patient Name: DASHA MELO Admission Status: Elective Accout number: [id number] Admission Date: 10-09-2018 : 1940 Admission Diagnosis:SHORTNESS OF BREATH Attending: KYLER CÁRDENAS Current LOS: 6 Anticipated DC Date: Planned Disposition: Prison Facility Primary Insurance: MEDICARE A & B Discharge Planning Comments: FAMILY IS INTERESTED IN HOSPICE CARE. Section Beamer: Malou Pelaez DCP- Discharge Planning Updated by [id number]: Malou Pelaez on 10/15/18 11:[address] Patient Name: DASHA MELO Admission Status: Elective Accout number: [id number] Admission Date: 10-09-2018 : 1940 Admission Diagnosis:SHORTNESS OF BREATH Attending: KYLER CÁRDENAS Current LOS: 6 Anticipated DC Date: Planned Disposition: Prison Facility Primary Insurance: MEDICARE A & B Discharge Planning Comments: CM MET WITH PATIENT'S DAUGHTER ERIKA AND SHE STATES THEY WANT [facility] IN [facility]. FAUSTINO SIGNED AND DOCUMENTS FAXED TO [facility] AT [phone]. PHONE NUMBER [phone], SPOKE WITH THEM AND WAITING CLINICAL RESOURCE COORDINATOR BACK. CM TO FOLLOW AND ASSISST NEEDED WITH DC PLANNING/NEEDS. Section Beamer: Malou Pelaez DCP- Discharge Planning Updated by [id number]: Katy Elaine on 10/13/18 10:[address] was here yesterday and spoke with lindy Vela for [facility] in [place]. states she would like her to go to [facility] for SNF when he was discharged from acute care. Will wait on sending referral per Tatiana's recommendation until closer to discharge. CM will continue to follow and assist with discharge planning/needs. DCP- Discharge Planning Updated by [id number]: Katy Elaine on 10/11/18 3:[address] Patient Name: DASHA MELO Admission Status: Elective Accout number: [id number] Admission Date: 10-09-2018 : 1940 Admission Diagnosis:SHORTNESS OF BREATH Attending: KYLER CÁRDENAS Current LOS: 2 Anticipated DC Date: Planned Disposition: Prison Facility Primary Insurance: MEDICARE A & B Discharge Planning Comments: CM met with patient's daughter per her request. Patient is not alert at this time, so all conversation is with daughter. She states her father has been in [facility] for his dementia. States they were working on trying to get him placed in a SNF to transition to LTC. States he has been living with his in [place]. States he has been recently diagnosed with moderate to severe dementia. She has several NH names that she has received from Isaiah in [facility] and her own contacts. FAUSTINO signed. She would like me to have him go to [facility] since it is in [place] and near his home. I will send out the referral in am. CM will continue to follow and assist with discharge planning/needs. Section Beamer: Katy Elaine DCPIA - Discharge Planning Initial Assessment Updated by [id number]: Katy Elaine on 10/11/18 4:14 pm * Is the patient Alert and Oriented? No * PCP Katerin Dominique in [place] * Pharmacy Unsure of pharmacy * Preadmission Environment Other * Other Environment [facility] * Facility [facility] * ADLs Total Dependent * Equipment Cane Oxygen Rolling Walker * List name and contact numbers for known caregivers / representatives who currently or will assist patient after discharge: Erika Sundeep - DTR - [phone] * Verbal permission to speak to the caregivers and representatives has been obtained from the patient. N/A * Community resources currently utilized None * Additional services required to return to the preadmission environment? Yes * Can the patient safely return to the preadmission environment? No * Has this patient been hospitalized within the prior 30 days at any hospital? Yes External Providers External Provider: [email or web address] in Next Contact Date: 10/18/2018 Service Request Date: Service Type: Resolution: Reviewer: Comments: Coverage Notice Reviewer: [id number] Ade Rocha Notice Issued Date-Time: 10/18/2018 12:44 Notice Type: IM Discharge Notice Notice Delivered To: Family Member Relationship to Patient: Spouse Retort Pre Cooker Name: ANGELIKA MELO Delivery Method: HAND - Hand Delivered Carmen Days: Prior Verbal Notification: Recipient Understood Notice: Yes Recipient Signature: Yes Med Rec Note Co-signed by Attending: Coverage Notice Comment: [facility] Reviewer: [id number] Ade Rocha Notice Issued Date-Time: 10/18/2018 11:25 Notice Type: IM Discharge Notice Notice Delivered To: Family Member Relationship to Patient: Spouse Retort Pre Cooker Name: ANGELIKA MELO Delivery Method: HAND - Hand Delivered Carmen Days: Prior Verbal Notification: Recipient Understood Notice: Yes Recipient Signature: Yes Med Rec Note Co-signed by Attending: Coverage Notice Comment: Reviewer: [email or web address] Ade Pelaez Notice Issued Date-Time: 10/15/2018 11:11 Notice Type: Patient Choice Letter Notice Delivered To: Family Member Relationship to Patient: Daughter Retort Pre Cooker Name: Delivery Method: HAND - Hand Delivered Carmen Days: Prior Verbal Notification: Recipient Understood Notice: Yes Recipient Signature: Yes Med Rec Note Co-signed by Attending: Coverage Notice Comment: [facility] [place]. Reviewer: [email or web address] Ade Elaine Notice Issued Date-Time: 10/11/2018 16:19 Notice Type: Patient Choice Letter Notice Delivered To: Family Member Relationship to Patient: Daughter Retort Pre Cooker Name: Erika Magana Delivery Method: HAND - Hand Delivered Carmen Days: Prior Verbal Notification: Recipient Understood Notice: Yes Recipient Signature: Yes Med Rec Note Co-signed by Attending: Coverage Notice Comment: 1. [facility] in [place] 2. [facility] in [place] 3. [facility] in [place] 4. [facility] in [place] Last DP export: 10/18/18 3:37 pm Patient Name: DASHA MELO Page [id number] at 1644 All edits/amendments must be made on the electronic document DICTATION DATE: 10/18/181643 LAUNDRY OPERATOR FINISHING: INGA 10/18/181643 RPT#: [id number] DC DATE: STATUS: ADM IN [facility] [address] [place] [address] END OF REPORT
[2018-10-18 16:58] VITALS: BP 121/71
--- NOTE | 2018-10-19 08:06 | MORECARE ---
CASE MANAGEMENT DISCHARGE SUMMARY PATIENT: DASHA MELO UNIT: [id number] ADM DATE: 10/09/18 AGE: 77 : 38 SEX: M ROOM/BED: D.2117 AUTHOR: FLORENCIA,DOC PHYSICIAN: REFERRING PHYSICIAN: KYLER CÁRDENAS MD DATE OF SERVICE: 10/19/18 Discharge Plan Patient Name: DASHA MELO Facility: [facility]:[place] : 1940 Planned Disposition: Hospice Medical Facility Anticipated Discharge Date: 10/18/18 Discharge Date: 10/18/2018 Expected LOS: 9 Initial Reviewer: [id number] Initial Review Date: 10/09/2018 Generated: 10/19/18 9:05 am Comments DCP- Discharge Planning Updated by [id number]: Abisai Rocha on 10/19/18 7:[address] Patient Name: DASHA MELO Encounter No: [id number] : 1940 Primary Insurance: MEDICARE A & B Anticipated DC Date: 10-18-2018 Planned Disposition: Hospice Medical Facility External Planned Provider: [facility] DCP follow-up note: CHART REVIEWED, PATIENT ADMITTED TO [facility] LAST EVENING. PT AND FAMILY RECEIVING ALL CASE MANAGEMENT SERVICES FROM [facility]. Talent Buyer: Abisai Rocha DCP- Discharge Planning Updated by [id number]: Abisai Rocha on 10/18/18 3:[address] Patient Name: DASHA MELO Encounter No: [id number] : 1940 Primary Insurance: MEDICARE A & B Anticipated DC Date: 10-18-2018 Planned Disposition: Hospice Medical Facility External Planned Provider: [facility] DCP follow-up note: CM RECEIVED CALL FROM TATIANA OF [facility], PT'S DAILY RATE FOR RETIREMENT CARE WILL BE $175 PER DAY; CM SPOKE TO [facility] WHO INFORMED CM THAT PT'S DAILY RATE WOULD BE $157 PER DAY. CM NOTIFIED PT'S SPOUSE WHO REPORTS SHE WANTS TO DISCUSS THIS WITH FAMILY BEFORE MAKING FURTHER DECISIONS REGARDING PLACEMENT. CM LATER RECEIVED TELEPHONE MESSAGE FROM PT'S SPOUSE, ANGELIKA, WHO ASKED IF PT CAN STAY FOR A FEW MORE DAYS IN THE HOSPITAL WHILE ANGELIKA ARRANGED A MEETING WITH HER HATCHERY MAN. CM MET WITH PT'S SPOUSE IN ROOM WITH PT; DR. ROWE ALSO PRESENT. FAMILY CONCERNED ABOUT FINANCIAL CONSIDERATIONS OF PLACING PT IN RETIREMENT. CM REVIEWED CHART AND DISCUSSED POSSIBILITY OF INPATIENT HOSPICE AT [facility]. ANGELIKA REPORTS SHE WAS THINKING THAT PT MAY NOT MAKE IT TO THE RETIREMENT IF THE MEDICATIONS WERE STOPPED AND MAY IN THE AMBULANCE. CM DISCUSSED HOSPICE PROVIDERS AND OPTIONS. ANGELIKA WOULD LIKE TO HAVE PT EVALUATED BY [facility] TO SEE IF PT MAY STAY AT [facility] FOR HOSPICE CARE. CM CALLED [facility], , SPOKE TO ABDOULAYE WHO TOOK REFERRAL INFORMATION. CM FAXED REFERRAL TO [facility] AT [phone]. CM WAITING INPATIENT HOSPICE EVALUATION AND ADMISSION DETERMINATION FROM [facility]. Abisai Rocha, CASE MANAGEMENT DCP- Discharge Planning Updated by [id number]: Abisai Rocha on 10/18/18 12:[address] Patient Name: DASHA MELO Encounter No: [id number] : 1940 Primary Insurance: MEDICARE A & B Anticipated DC Date: 10-18-2018 Planned Disposition: Nursing Facility [facility] Cert External Planned Provider: [facility] OR [facility], C[facility] MEDICAID BED DCP follow-up note: CM RECEIVED REQUEST TO MEET WITH PT'S SPOUSE IN ROOM REGARDING UPDATE ON HOSPICE PLACEMENT. CM MET WITH PT AND SPOUSE IN ROOM. PT IS NOT ORIENTED, YELLING OUT TO "HELP ME" REPEATEDLY. PT'S SPOUSE REPORTS THAT THE PRODUCER WAS WORKING ON [facility] ON THURSDAY AND NEEDED TO GET PT INTO A RETIREMENT FOR HOSPICE AND SHE HAS HEARD NOTHING. CM REVIEWED CHART WHICH INDICATED REFERRALS TO [facility] AND [facility]. PT'S SPOUSE REPORTS HER DAUGHTER SIGNED THE CHOICE FOR THOSE THEY ARE CLOSER TO HER DAUGHTER. PT'S SPOUSE IN AGREEMENT IF THEY WILL ACCEPT, SPOUSE WANTS PT DISCHARGED TO RETIREMENT WITH HOSPICE TODAY. IMPORTANT MESSAGE FROM MEDICARE PROVIDED AND EXPLAINED. CM CALLED TATIANA OF [facility] AND [facility], ; TATIANA ADVISED [facility] HAS DONATION WORKER CARE WAITING LIST AND [facility] NEEDS UPDATE TO CONSIDER FOR ADMISSION. THEY DO NOT CONTRACT WITH [facility] AND USE [facility] OR [facility]. CM FAXED UPDATE TO [facility] AT [phone]. CM NOTIFIED PT'S SPOUSE WHO REPORTS NO PREFERENCE ON HOSPICE COMPANY AND [facility] IS OK FOR DONATION WORKER PLACEMENT WITH EITHER HOSPICE COMPANY. CM CALLED [facility] IN [place], , SPOKE TO YONATHAN WHO INFORMED CM THAT SHE SPOKE TO PT'S SPOUSE AND THEY CAN CONTRACT FOR HOSPICE AT THE [facility] WHICH IS A "NICE FACILITY. YONATHAN OFFERED TO CALL PT'S SPOUSE TO SEE IF SHE WILL CONSENT TO REFERRAL THERE, CM INFORMED YONATHAN THAT CM IS REPONSIBLE FOR PLACEMENT AND WILL TAKE CARE OF IT. CM MET AGAIN WITH PT'S SPOUSE IN ROOM WHO REPORTS THAT SHE DID TALK TO YONATHAN AT [facility] AND WOULD LIKE A REFERRAL SENT TO [facility] IT IS CLOSER TO HER HOME THAN [facility], ONLY 20 MILES PER PT'S SPOUSE. CHOICE LETTER SIGNED. PT'S SPOUSE REPORTS THAT PT WILL GO TO THE FIRST ACCEPTING FACILITY TODAY. CM CALLED [facility], , SPOKE TO AGUSTÍN WHO INFORMED CM THAT [facility] IS OUT TO [facility] AND WILL SCREEN FOR ADMISSION TODAY. CM FAXED REFERRAL TO [facility], . CM WAITING ADMISSION DETERMINATIONS FROM [facility] AND [facility]. IF PT GOES TO [facility], PT WILL USE [facility]; IF PT GOES TO [facility], PT'S SPOUSE WILL CHOOSE BETWEEN [facility] AND [facility]. Abisai Rocha, CASE MANAGEMENT DCP- Discharge Planning Updated by [id number]: Malou Pelaez on 10/15/18 3:[address] Patient Name: DASHA MELO Admission Status: Elective Accout number: [id number] Admission Date: 10-09-2018 : 1940 Admission Diagnosis:SHORTNESS OF BREATH Attending: KYLER CÁRDENAS Current LOS: 6 Anticipated DC Date: Planned Disposition: Assisted Facility Primary Insurance: MEDICARE A & B Discharge Planning Comments: FAMILY IS INTERESTED IN HOSPICE CARE. Talent Buyer: Malou Pelaez DCP- Discharge Planning Updated by [id number]: Malou Pelaez on 10/15/18 11:[address] Patient Name: DASHA MELO Admission Status: Elective Accout number: [id number] Admission Date: 10-09-2018 : 1940 Admission Diagnosis:SHORTNESS OF BREATH Attending: KYLER CÁRDENAS Current LOS: 6 Anticipated DC Date: Planned Disposition: Assisted Facility Primary Insurance: MEDICARE A & B Discharge Planning Comments: CM MET WITH PATIENT'S DAUGHTER ERIKA AND SHE STATES THEY WANT [facility] IN [facility] [facility]. [facility] SIGNED AND DOCUMENTS FAXED TO [facility] AT [phone]. PHONE NUMBER [phone], SPOKE WITH THEM AND WAITING INDEPENDENT TRADER BACK. CM TO FOLLOW AND ASSISST NEEDED WITH DC PLANNING/NEEDS. Talent Buyer: Malou Pelaez DCP- Discharge Planning Updated by [id number]: Katy Elaine on 10/13/18 10:[address] was here yesterday and spoke with lindy Vela for [facility] in [place]. states she would like her to go to [facility] for SNF when he was discharged from acute care. Will wait on sending referral per Tatiana's recommendation until closer to discharge. CM will continue to follow and assist with discharge planning/needs. DCP- Discharge Planning Updated by [id number]: Katy Elaine on 10/11/18 3:[address] Patient Name: DASHA MELO Admission Status: Elective Accout number: [id number] Admission Date: 10-09-2018 : 1940 Admission Diagnosis:SHORTNESS OF BREATH Attending: KYLER CÁRDENAS Current LOS: 2 Anticipated DC Date: Planned Disposition: Assisted Facility Primary Insurance: MEDICARE A & B Discharge Planning Comments: CM met with patient's daughter per her request. Patient is not alert at this time, so all conversation is with daughter. She states her father has been in assisted for his dementia. States they were working on trying to get him placed in a SNF to transition to LTC. States he has been living with his in [place]. States he has been recently diagnosed with moderate to severe dementia. She has several NH names that she has received from [facility] in assisted and her own contacts. FAUSTINO signed. She would like me to have him go to [facility] since it is in [place] and near his home. I will send out the referral in am. CM will continue to follow and assist with discharge planning/needs. Talent Buyer: Katy Elaine DCPIA - Discharge Planning Initial Assessment Updated by [id number]: Katy Elaine on 10/11/18 4:14 pm * Is the patient Alert and Oriented? No * PCP [facility] Dominique in [place] * Pharmacy Unsure of pharmacy * Preadmission Environment Other * Other Environment Long Term * Facility Name [facility] at [facility] * ADLs Total Dependent * Equipment Cane Oxygen Rolling Walker * List name and contact numbers for known caregivers / representatives who currently or will assist patient after discharge: Erika Urbano - DTR - [phone] * Verbal permission to speak to the caregivers and representatives has been obtained from the patient. N/A * Community resources currently utilized None * Additional services required to return to the preadmission environment? Yes * Can the patient safely return to the preadmission environment? No * Has this patient been hospitalized within the prior 30 days at any hospital? Yes Coverage Notice Reviewer: [id number] Ade Elaine Notice Issued Date-Time: 10/11/2018 16:19 Notice Type: Patient Choice Letter Notice Delivered To: Family Member Relationship to Patient: Daughter Animal Trainer Supervisor Name: Erika Magana Delivery Method: HAND - Hand Delivered Carmen Days: Prior Verbal Notification: Recipient Understood Notice: Yes Recipient Signature: Yes Med Rec Note Co-signed by Attending: Coverage Notice Comment: 1. [facility] in [place] 2. [facility] in [place] 3. [facility] in [place] 4. [facility] in [place] Reviewer: [id number] - Malou Pelaez Notice Issued Date-Time: 10/15/2018 11:11 Notice Type: Patient Choice Letter Notice Delivered To: Family Member Relationship to Patient: Daughter Animal Trainer Supervisor Name: Delivery Method: HAND - Hand Delivered Carmen Days: Prior Verbal Notification: Recipient Understood Notice: Yes Recipient Signature: Yes Med Rec Note Co-signed by Attending: Coverage Notice Comment: [facility] FOR [facility] IN [place]. Reviewer: [id number] Ade Rocha Notice Issued Date-Time: 10/18/2018 11:25 Notice Type: IM Discharge Notice Notice Delivered To: Family Member Relationship to Patient: Spouse Animal Trainer Supervisor Name: ANGELIKA MELO Delivery Method: HAND - Hand Delivered Carmen Days: Prior Verbal Notification: Recipient Understood Notice: Yes Recipient Signature: Yes Med Rec Note Co-signed by Attending: Coverage Notice Comment: Reviewer: [id number] Ade Rocha Notice Issued Date-Time: 10/18/2018 12:44 Notice Type: IM Discharge Notice Notice Delivered To: Family Member Relationship to Patient: Spouse Animal Trainer Supervisor Name: ANGELIKA MELO Delivery Method: HAND - Hand Delivered Carmen Days: Prior Verbal Notification: Recipient Understood Notice: Yes Recipient Signature: Yes Med Rec Note Co-signed by Attending: Coverage Notice Comment: [facility] Last DP export: 10/18/18 3:44 pm Patient Name: DASHA MELO Page [id number] at 0806 All edits/amendments must be made on the electronic document DICTATION DATE: 10/19/18804 SENIOR DIGITAL DESIGNER: INGA 10/19/18804 RPT#: [id number] DC DATE:10/18/18 STATUS: DIS IN [facility] [address] [place] [address] END OF REPORT
--- NOTE | 2018-10-22 15:12 | EC ---
PATIENT:DASHA MELO DATE OF SERVICE: 10/09/18 SEX: M MEDICAL RECORD: [id number] DATE OF : [birth year] LOCATION:D.M2 D.211 AGE OF PATIENT: 77 ADMISSION DATE: 10/09/18 REFERRING PHYSICIAN: INTERPRETING PHYSICIAN: ALFONSO NICOLE MD ECHOCARDIOGRAM REPORT ECHO CHARGES 4 ECHO COMPLETE Date: 10/13/18 CLINICAL DIAGNOSIS: AFIB ECHOCARDIOGRAPHIC MEASUREMENTS (adult normal given) AC root (d.<3.7cm) 4.1 cm LV Septum d (<1.2 cm> 1.3 cm Valve Excursion 1.3 cm LV Septum (systole) 1.9 cm Left Atria (s.<4.0cm> 3.4 cm LVPW d(<1.2cm) 1.3 cm RV (d.<2.3cm) 3.4 cm LVPW (sytole) 1.9 cm LV diastole(<5.6CM) 5.8 cm MV E-F(>70mm/sec) cm LV systole 3.6 cm LVOT Diameter 1.7 cm MV exc.(>10mm) cm Est.ejection fraction (50-75%) % DOPPLER: LVIT cm/sec A 44 cm/sec E 74 cm/sec LA cm/sec RVSP 26.7 mmHg LVOT 103 cm/sec AOP1/2T m/s Asc. Ao 157 cm/sec RVOT 78 cm/sec RA cm/sec PA 97 cm/sec AV Gradient Peak 9.8 mmHg AV Mean 6.4 mmHg AV Area 1.4 cm MV Gradient Peak 7.8 mmHg MV Mean 2.5 mmHg MV Area cm COMMENTS: Carbon Plant Grinder: Imer [facility] Estate Planning Attorney: 1 Dr. Nicole TAPE# PACS Pericardial Effusion N DATE OF SERVICE: 10/14/2018 ECHOCARDIOGRAM DATE OF SERVICE: 10/14/2018 FINDINGS: 1. Left ventricular chamber size is mildly dilated. Left ventricular systolic function is lower limits of normal at 45% to 50%. 2. Left atrium is within normal limits. Right atrium and right ventricular ECHOCARDIOGRAM REPORT [id number] DASHA MELO chamber sizes are mildly dilated. 3. Valvular structures have normal structure and motion. 4. Doppler interrogation reveals mild mitral regurgitation, mild tricuspid regurgitation. No other valvular insufficiency or stenosis. Pulmonary systolic pressure is estimated at 27 mmHg. 5. No evidence of pericardial effusion or left ventricular thrombus. TRANSINT:[id number] Voice Confirmation ID: [id number] DOCUMENT ID: [id number] ALFONSO NICOLE MD at 1512 CC: [id number] DICTATION DATE: 10/14/18 1242 WHEEL MILL OPERATOR: 10/14/18 1324 DIS IN 10/18/18 [facility] [address] [place] [id number]
== END 2018-10-18 18:41 | disposition hospice, home (50) | DRG 871 ==
LOC: D.MS 19:29 → EDBD 20:19 → D.M2 10-13 12:23
PROVIDERS: Internal Medicine Nephrology; ADMIT Family Medicine; ATTEND Family Medicine
PROC: 0R9J3ZX Drainage of Right Shoulder Joint, Percutaneous Approach, Diagnostic (ICD-10-PCS; principal; 2018-10-10)
DX: A41.9 Sepsis, unspecified organism (principal); J18.9 Pneumonia, unspecified organism; I21.4 Non-ST elevation (NSTEMI) myocardial infarction; J96.21 Acute and chronic respiratory failure with hypoxia; F02.81 Dementia in other diseases classified elsewhere, unspecified severity, with behavioral disturbance; B37.0 Candidal stomatitis; M25.511 Pain in right shoulder; R06.02 Shortness of breath; I10 Essential (primary) hypertension; E11.9 Type 2 diabetes mellitus without complications; G30.9 Alzheimer's disease, unspecified; E11.40 Type 2 diabetes mellitus with diabetic neuropathy, unspecified; I48.91 Unspecified atrial fibrillation

== ENCOUNTER 2018-10-10 10:53 | Emergency (ER) | payer MEDICARE, BC ==
[~2018-10-10] VITALS: Ht 193 cm; Wt 100.0 kg
[~2018-10-10 10:53] MED LIST changes: +ANUSOL-HC 2.5%30 GM RC; +CLOTRIMAZOLE-BE30 ML TOPICAL; +CORTISPORIN OTI10 M1 LEFT EAR; +DIFLUCAN100 MG PO; +DONEPEZIL HCL5 MG PO; +GEODON20 MG PO; +K-DUR20 MEQ PO; +KLONOPIN1 MG PO; +LASIX40 MG PO; +MEGACE40 MG PO; +ULTRAM50 MG PO; +VALTREX500 MG PO; +VITAMIN D2000 UNIT PO; +ZITHROMAX250 MG PO
[2018-10-10 10:58] VITALS: BP 90/51; Ht 193 cm; Wt 100.0 kg
--- NOTE | 2018-10-15 15:40 | DS ---
PATIENT:DASHA MELO :36 MEDICAL RECORD: [id number] DISCHARGE SUMMARY ADMISSION DATE: 10/10/18 DISCHARGE DATE: 10/10/18 IDENTIFYING DATA: The patient is 77 years old and he was admitted to the hospital on a voluntary basis secondary to aggression. The patient is referred to us by the [facility]. He has been there as the patient has been aggressive and confused. He is unable to provide much in the way of useful information. He says that I am trying to kill him along with the 2 nurses who were here with me. He is screaming, "help help, call the police, they are trying to kill me." He was admitted to the hospital for evaluation and treatment of these symptoms. HOSPITAL COURSE: The patient was extremely demented and confused. He was also quite agitated. He was given medicine to calm his behavior and it was clear he had an advanced dementia. He was being treated for these behavior outbursts and problems when he developed a fever and diarrhea, and was transferred to internal medicine for ongoing treatment. DISCHARGE DIAGNOSES: AXIS I: Senile dementia of the Alzheimer's type with behavioral disturbances. AXIS II: None. AXIS III: Diabetes, coronary artery disease, fever of uncertain etiology, and diarrhea of uncertain etiology. AXIS IV: Moderate stressors. AXIS V: Global assessment of functioning is 20. PLAN: At the time of discharge, the patient had shown little or no overall improvement. He had had some periods through the week that he was here where he was a little better, but then at the time of discharge he had deteriorated and was acutely ill medically. He continued to be paranoid and aggressive. Once he is adequately treated from a medical standpoint, I would be happy to have him return here for additional behavioral care if that is desired or indicated. TRANSINT:[id number] Voice Confirmation ID: [id number] DOCUMENT ID: [id number] JINNY FRANCIS MD at 1540 CC: [id number] DICTATION DATE: 10/14/18 1617 UPPER TIER: 10/15/18 0728 DEP ER 10/10/18 [place] [id number] [place] [address]
== END 2018-10-10 11:36 | disposition other institution (70) ==
LOC: EDBD 10:53 → D.ER 10:53
DX: M25.511 Pain in right shoulder (principal); R41.82 Altered mental status, unspecified

== ENCOUNTER 2018-10-18 18:11 | Inpatient (IN) | payer OTHER ==
[~2018-10-18] VITALS: Ht 193 cm; Wt 99.5 kg
[2018-10-18 23:55] VITALS: BP 137/81
[2018-10-19 00:43] VITALS: BMI 26.7
[2018-10-19 03:39] VITALS: BP 129/77
--- NOTE | 2018-10-19 08:06 | MORECARE ---
CASE MANAGEMENT DISCHARGE SUMMARY PATIENT: DASHA MELO UNIT: [id number] ADM DATE: 10/18/18 AGE: 77 : 38 SEX: M ROOM/BED: D.2117 AUTHOR: SONDRA DON PHYSICIAN: REFERRING PHYSICIAN: SHAYLA MONTES MD DATE OF SERVICE: 10/19/18 Discharge Plan Patient Name: DASHA MELO Facility: [facility]:[place] : 1940 Planned Disposition: Anticipated Discharge Date: Discharge Date: Expected LOS: Initial Reviewer: [email or web address] Initial Review Date: 10/19/2018 Generated: 10/19/18 9:06 am Comments DCP- Discharge Planning Updated by [id number]: Abisai Rocha on 10/19/18 7:[address] Patient Name: DASHA MELO Admission Status: Elective Accout number: [id number] Admission Date: 10-18-2018 : 1940 Admission Diagnosis: Attending: SHAYLA MONTES Current LOS: 1 Anticipated DC Date: Planned Disposition: Primary Insurance: [facility] Planned external provider: [facility] Discharge Planning Comments: CHART REVIEWED, PATIENT ADMITTED TO [facility] LAST EVENING. PT AND FAMILY RECEIVING ALL CASE MANAGEMENT SERVICES FROM [facility]. Chief Talent Officer: Abisai Rocha Patient Name: DASHA MELO Page [id number] at 0806 All edits/amendments must be made on the electronic document DICTATION DATE: 10/19/18804 VISUAL STYLIST: INGA 10/19/18804 RPT#: [id number] DC DATE: STATUS: ADM IN [facility] [address] [place] [address] END OF REPORT
[2018-10-19 08:32] VITALS: Ht 193 cm; Wt 99.5 kg
[2018-10-19 08:54] VITALS: BP 110/80
[2018-10-19 23:55] VITALS: BP 94/44
[2018-10-20 04:31] VITALS: BP 80/45
[2018-10-20 09:00] VITALS: BP 73/42
--- NOTE | 2018-10-21 09:32 | MORECARE ---
CASE MANAGEMENT DISCHARGE SUMMARY PATIENT: DASHA MELO UNIT: [id number] ADM DATE: 10/18/18 AGE: 77 : 38 SEX: M ROOM/BED: D.2117 AUTHOR: SONDRA DON PHYSICIAN: REFERRING PHYSICIAN: SHAYLA MONTES MD DATE OF SERVICE: 10/21/18 Discharge Plan Patient Name: DASHA MELO Facility: [facility]:[place] : 1940 Planned Disposition: Anticipated Discharge Date: 10/20/18 Discharge Date: 10/20/2018 Expected LOS: 2 Initial Reviewer: [id number] Initial Review Date: 10/19/2018 Generated: 10/21/18 10:31 am Comments DCP- Discharge Planning Updated by [id number]: Abisai Rocha on 10/19/18 7:[address] Patient Name: DASHA MELO Admission Status: Elective Accout number: [id number] Admission Date: 10-18-2018 : 1940 Admission Diagnosis: Attending: SHAYLA MONTES Current LOS: 1 Anticipated DC Date: Planned Disposition: Primary Insurance: [facility] Planned external provider: [facility] Discharge Planning Comments: CHART REVIEWED, PATIENT ADMITTED TO [facility] LAST EVENING. PT AND FAMILY RECEIVING ALL CASE MANAGEMENT SERVICES FROM [facility]. Tandem Mill Operator: Abisai Rocha Last DP export: 10/19/18 7:06 am Patient Name: DASHA MELO Page [phone] at 0932 All edits/amendments must be made on the electronic document DICTATION DATE: 10/21/18930 CONSUMER PRODUCT ADVISOR: INGA 10/21/18930 RPT#: [id number] DC DATE:10/20/18 STATUS: DIS IN [facility] [address] [place] [address] END OF REPORT
== END 2018-10-20 15:22 | DRG 951 ==
LOC: D.M2 18:11
PROVIDERS: ADMIT Legal Medicine; ATTEND Legal Medicine
DX: Z51.5 Encounter for palliative care (principal)